=== PATIENT | female | born 1955 | race African-American/Black ===

== ENCOUNTER 2019-12-13 10:32 | Inpatient (IN) | payer MEDICARE, MEDICAID ==
[2019-12-13] MEDS ORDERED: Lorazepam 2 MG/ML VIAL ONE (10:37)
[2019-12-13 10:54] LABS: #Basophils 0.1 thou/uL (0.0-0.2); #Eosinphils 0.1 thou/uL (0.0-0.7); #Lymphocytes 2.6 thou/uL (1.20-3.40); #Monocytes 0.8 thou/uL (0.11-0.59); #Neutrophils 5.7 thou/uL (1.40-6.50); %Basophils 1.1 % (0.0-1.0); %Eosinophils 1.1 % (0.0-10.0); %Lymphocytes 28.5 % (21.0-51.0); %Monocytes 8.2 % (0.0-10.0); %Neutrophils 61.2 % (42.0-75.0); Hemoglobin 13.3 g/dL (12.0-16.0); Mean Corpuscular HGB CONC 32.1 g/dL (32.0-36.0); Mean Corpuscular Hemoglobin 27.1 pg (27.0-31.0); Mean Corpuscular Volume 84.6 fL (78.0-98.0); Mean Platelet Volume 9.3 fL (7.4-10.4); Platelet Count 312 thou/uL (130-400); RBC Distribution Width 13.4 % (11.5-14.5); White Blood Cell (WBC) Count 9.3 thou/uL (4.8-10.8)
[2019-12-13 10:57] LABS: INR-International Normal Ratio 0.9; PTT 29.8 sec (22.9-36.1); Prothrombin Time 12.6 sec (12.0-14.7)
--- NOTE | 2019-12-13 11:02 | CT ---
CT Head without IV contrast COMPARISON: None. HISTORY: Level 1 stroke. Difficulty speaking. Patient had seizure on table. TECHNIQUE: Axial CT imaging at 5 mm intervals from vertex through skull base without contrast FINDINGS: There is no evidence of an acute cortical infarction, hemorrhage, mass effect, or midline shift. Ther e is decreased attenuation seen in the periventricular white matter which is nonspecific but likely attributable to chronic small vessel ischemic changes. Low-density area is seen in the left external capsule which may also be attributable to chronic ischemic changes. A nonspecific tiny calcification is seen in the posterior aspect of the left temporal lobe. The ventricular system is no rmal in size, shape, and position for the degree of sulcal atrophy. Visualized paranasal sinuses are clear. Osseous structures appear intact. IMPRESSION: 1. No acute intracranial abnormality demonstrated. 2. Above findings discussed with Dr. Canales in the emergency department on 12/13/2019 at 1046 hours
[2019-12-13 11:18] LABS: ALT (SGPT) 15 U/L (8-55); AST (SGOT) 13 U/L (5-34); Albumin 4.1 g/dL (3.4-4.8); Alkaline Phosphatase 110 U/L (40-110); Anion Gap 16 mmol/L (10-20); BUN (Urea Nitrogen) 12 mg/dL (9.8-20.1); Bilirubin, Total 0.4 mg/dL (0.2-1.2); CK (CPK) 66 U/L (29-168); Calc. Creatinine Clearance 0 mL/min (70-130); Calcium 9.3 mg/dL (7.8-10.44); Carbon Dioxide 23 mmol/L (23-31); Chloride 104 mmol/L (98-107); Estimated GFR-MDRD 71; Glucose 143 mg/dL (80-115); Potassium 3.8 mmol/L (3.5-5.1); Protein, Total 7.1 g/dL (6.0-8.3); Sodium 139 mmol/L (136-145)
[2019-12-13 11:19] LABS: Acetaminophen Less than 6.0 mcg/mL (10.0-30.0); Alcohol Less than 10 mg/dL (Less than 10); Salicylate Less than 8.0 mg/dL (15.0-30.0)
[2019-12-13] MEDS ORDERED: Iopamidol-370 76% 500 ML 1 ML ONE (11:23)
--- NOTE | 2019-12-13 11:27 | CT ---
EXAM: CT angiogram head and neck with IV contrast and 3-D reconstructions PROVIDED CLINICAL HISTORY: Level 1 stroke. Patient is difficulty speaking and had a seizure on table. COMPARISON: 05/23/2017 FINDINGS: The aortic arch is patent with minimal vascular calcifications. There is a common origin of the brach iocephalic artery and left common carotid artery each of which is patent. Portion right subclavian artery is obscured due to dense contrast in adjacent veins, but the visualized bilateral subclavian a rteries are otherwise patent. Bilateral common carotid arteries are patent. Vascular calcifications and minimal atherosclerotic isabell que is seen at the distal right common carotid artery and to a lesser extent involving the distal left common carotid artery in the region of the carotid bulbs. There is mild narrowing of the distal right common carotid artery, but the degree of narrowing is less than 50%. Bilateral internal carotid arteries are patent. The proximal right vertebral artery is not well visualized due to artifact from adjacent dense contra st in venous structures. Remainder of the right vertebral artery is dominant and patent. The left vertebral artery is patent and terminates in PICA. The basilar artery and posterior cerebral arteries are patent. A type origin is seen involving the right posterior cerebral artery. Posterior communicating artery on the left is patent. The A1 segment right anterior cerebral artery is absent, and the A2 segments of each anterior cerebra l artery is supplied by the left A1 segment which is patent. The bilateral middle cerebral arteries are patent. No aneurysm is seen within the limitations of the technique of this exam. There has been no significant interval change when compared to the prior exam in 2017. There is mild volume loss seen dependently within the visualized upper lung zones. IMPRESSION: 1. Mild atherosclerotic plaque seen involving the distal common carotid arteries and carotid bulbs bi laterally greater on the right, but there is no significant stenosis present. 2. Patent bilateral vertebral arteries. Left vertebral artery terminates in PICA. 3. Patent bilateral internal carotid arteries. 4. No focal stenosis or branch occlusion is seen involving the [place] or vertebrobasilar sy stem. 5. Above findings discussed with Dr. Canales in the emergency department on 12/13/2019 at 1106 hours.
--- NOTE | 2019-12-13 11:37 | RAD ---
Exam: Chest one view HISTORY:Stroke alert Comparison: 08/29/2018 FINDINGS: Cardiac silhouette: Normal Aorta: Unremarkable Pulmonary vessels: Normal Costophrenic angles: Clear LUNGS: No masses or consolidation. Pneumothorax: None Osseous abnormalities: None IMPRESSION: No acute cardiopulmonary process.
[2019-12-13] MEDS ORDERED: Aspirin 300 MG Suppository ONE (12:18)
[2019-12-13] MEDS ORDERED: Sodium Chloride 0.9% 1,000 ML IV SCH (12:20)
[2019-12-13] MEDS ORDERED: Dextrose 50% Abboject 50 ML SYRINGE SLOW IVP PRN (14:21)
[2019-12-13] MEDS ORDERED: Bisacodyl 5 MG TAB PO PRN (14:21)
[2019-12-13] MEDS ORDERED: Morphine 2 MG/ML SYRINGE SLOW IVP PRN (14:21)
[2019-12-13] MEDS ORDERED: Acetaminophen 650 MG Suppository PR PRN (14:21)
[2019-12-13] MEDS ORDERED: Ondansetron PF 4 MG/2 ML Vial IVP PRN (14:21)
[2019-12-13] MEDS ORDERED: Dextrose 5% in Water 1,000 ML IV PRN (14:21)
[2019-12-13 14:26] VITALS: BMI 30.2
[2019-12-13 14:54] LABS: Troponin I 0.017 ng/mL (< 0.028)
--- NOTE | 2019-12-13 16:05 | HP ---
CHIEF COMPLAINT: Difficulty speaking. HISTORY OF PRESENT ILLNESS: Ms. Jung is a pleasant 64-year-old lady who was seen at [facility] on December 13, 2019. She was hospitalized at this facility in December 2018 for seizure. The patient is able to provide history by writing on paper. Collateral history was obtained from review of medical record as well as discussion with emergency room physician. The patient was reportedly shopping when she has become less responsive. She was having difficulty articulating. She also became unsteady and had to be helped to the ground. In the emergency room, she was found to be aphasic. She was offered tPA, but refused tPA. She denies any nausea or vomiting. She reports headache, global, 6/10 at its worst, no known aggravating or relieving factors. She also endorses occasional chest tightness over the last 2 days. She denies any cough, fevers, or chills. She denies any abdominal pain. REVIEW OF SYSTEMS: All systems were reviewed and found to be negative except for the pertinent positives mentioned above. PAST MEDICAL HISTORY: CVA in 2013 without residual deficit, TIA in 2011, seizures, hypertension, dyslipidemia, diabetes mellitus type 2, chronic low back pain, anxiety, and depression. PAST SURGICAL HISTORY: Hysterectomy and cholecystectomy. FAMILY HISTORY: Negative for heart disease. SOCIAL HISTORY: The patient denies tobacco use, alcohol use, or recreational drug use. ALLERGIES: NO KNOWN DRUG ALLERGIES. CURRENT MEDICATIONS: 1. Aspirin 81 mg daily. 2. Keppra 750 mg 2 times a day. 3. Lisinopril/hydrochlorothiazide 20/25 mg daily. 4. Tramadol 50 mg 3 times a day. PHYSICAL EXAMINATION: GENERAL: On examination, Ms. Jung is awake and alert, not in acute distress. VITAL SIGNS: Blood pressure is 109/69, pulse 84, respiratory rate 20, and oxygen saturation 98% on room air. She is afebrile. She is obese with a BMI of 30.2. EYES: No scleral icterus. No conjunctival pallor. ENT: Moist mucosal membranes. No oropharyngeal erythema or exudates. NECK: Supple, nontender, trachea is midline. RESPIRATORY: Accessory muscles of breathing are not active. Chest wall movements are symmetric bilaterally. Lungs are clear to auscultation without wheezes, rhonchi, or crepitations. CARDIOVASCULAR: S1 and S2 are heard, regular. Peripheral pulses palpable. ABDOMEN: Soft, nontender, bowel sounds are heard. NEUROLOGIC: The patient is aphasic. Cranial nerves 2 through 12 are intact. Power is 4/5 in the right upper extremity, 5/5 in the other 3 extremities. Deep tendon reflexes 2+, plantars downgoing bilaterally. SKIN: No rashes or subcutaneous nodules. MUSCULOSKELETAL: Power in the 4 extremities as described above. LYMPHATIC: No cervical lymphadenopathy. PSYCHIATRIC: Normal mood, normal affect, the patient is oriented to person, place, and time. LABORATORY DATA: Ms. Jung's labs and investigations were reviewed. I reviewed her electrocardiogram, which shows normal sinus rhythm, no ST changes to suggest an acute coronary syndrome. I also reviewed her chest x-ray, which does not show any pulmonary infiltrates. Noncontrast CT scan of the brain did not show any acute intracranial abnormality. CT scan of [place] and neck with contrast showed mild atherosclerotic plaque involving the distal common carotid arteries and carotid bulbs bilaterally, greater on the right, but no significant stenosis. There was no focal stenosis or branch occlusion involving the [place] or vertebrobasilar system. She has an unremarkable CBC, INR 0.9, unremarkable comprehensive metabolic profile, normal prolactin of 14.39, normal lipase, normal troponin I x2, and normal lactic acid. Plasma alcohol level, salicylate level, and acetaminophen level are all normal. ASSESSMENT AND PLAN: Ms. Jung is a pleasant 64-year-old lady who was seen at [facility] on December 13, 2019. Her problem list includes: 1. Ischemic cerebrovascular accident: Ms. Jung appears to be presenting with acute ischemic cerebrovascular accident. She will be admitted to the hospital for further management. I will consult Neurology. I will hold her aspirin and start her on Aggrenox and await Neurology Service's recommendations. I will also start her on statin. I will also check 2D echocardiogram and MRI of the brain. 2. Seizure disorder: I will continue Keppra. 3. Diabetes mellitus type 2: Start Accu-Cheks and insulin sliding scale. 4. Chronic back pain: Continue tramadol. 5. Anxiety and depression: It appears that the patient was using fluoxetine in 2016. We will resume the medication once it is clarified. Many thanks for allowing me to participate in your patient's care. Please feel free to contact me with any questions or concerns. LEVEL OF RISK: High. LEVEL OF COMPLEXITY: High. Job ID: [id number]
[2019-12-13] MEDS: traMADol HCl 50 MG TAB PO SCH ×2 (16:14→21:03)
[2019-12-13] MEDS: Sodium Chloride 0.9% 1,000 ML IV SCH (16:14)
[2019-12-13] MEDS: HumaLOG 300 UNITS/3 ML VIAL SC PRN (17:19)
[2019-12-13 17:55] LABS: Bacteria/HPF None Seen HPF (None Seen); Bilirubin Negative (Negative); Blood, Urine Negative (Negative); Clarity Clear (Clear); Glucose, Urine (Dipstick) Normal (Negative); Leukocyte Negative Leu/uL (Negative); Nitrite Negative (Negative); Protein, Urine (Dipstick) Negative (Neg-Trace); RBC/HPF 0-3 HPF (0-3); Urobilinogen Normal mg/dL (Less than 2); WBC/HPF 0-3 HPF (0-3)
[2019-12-13 18:00] LABS: Urine Culture Reflex No No
[2019-12-13 18:24] LABS: Troponin I 0.011 ng/mL (< 0.028)
[2019-12-13] MEDS: Atorvastatin Calcium 40 MG TAB PO SCH (21:02)
[2019-12-13] MEDS: Aggrenox 200-25mg CAP PO SCH (21:02)
[2019-12-13] MEDS: levETIRAcetam 500 MG TAB PO SCH (21:03)
[2019-12-14 05:04] LABS: #Basophils 0.1 thou/uL (0.0-0.2); #Eosinphils 0.1 thou/uL (0.0-0.7); #Lymphocytes 2.4 thou/uL (1.20-3.40); #Monocytes 0.8 thou/uL (0.11-0.59); #Neutrophils 5.5 thou/uL (1.40-6.50); %Basophils 1.1 % (0.0-1.0); %Eosinophils 1.4 % (0.0-10.0); %Lymphocytes 26.6 % (21.0-51.0); %Monocytes 8.5 % (0.0-10.0); %Neutrophils 62.5 % (42.0-75.0); Hemoglobin 11.5 g/dL (12.0-16.0); Mean Corpuscular HGB CONC 31.3 g/dL (32.0-36.0); Mean Corpuscular Hemoglobin 26.7 pg (27.0-31.0); Mean Corpuscular Volume 85.2 fL (78.0-98.0); Mean Platelet Volume 9.3 fL (7.4-10.4); Platelet Count 288 thou/uL (130-400); RBC Distribution Width 13.3 % (11.5-14.5); Red Blood Cell (RBC) Count 4.32 mill/uL (4.20-5.40); White Blood Cell (WBC) Count 8.8 thou/uL (4.8-10.8)
[2019-12-14 05:30] LABS: Anion Gap 10 mmol/L (10-20); BUN (Urea Nitrogen) 11 mg/dL (9.8-20.1); Calc. Creatinine Clearance 113 mL/min (70-130); Calcium 8.3 mg/dL (7.8-10.44); Carbon Dioxide 25 mmol/L (23-31); Cardiac Risk 3.8 (Less than 4.5); Chloride 108 mmol/L (98-107); Cholesterol 111 mg/dl (< 200 Desired); Estimated GFR-MDRD Greater than 90; Glucose 126 mg/dL (80-115); HDL Cholesterol 29 mg/dL (>60 Neg Risk); LDL Cholesterol, Calculated 67 mg/dL; Potassium 3.9 mmol/L (3.5-5.1); Sodium 139 mmol/L (136-145); Triglycerides 74 mg/dL (Less than 150)
[2019-12-14] MEDS: Acetaminophen 325 MG TAB PO PRN ×2 (06:01→10:31)
[2019-12-14] MEDS: Sodium Chloride 0.9% 1,000 ML IV SCH ×2 (08:40→23:26)
[2019-12-14] MEDS: levETIRAcetam 500 MG TAB PO SCH ×2 (08:43→20:37)
[2019-12-14] MEDS: traMADol HCl 50 MG TAB PO SCH ×3 (08:45→20:37)
[2019-12-14] MEDS: Aggrenox 200-25mg CAP PO SCH ×2 (08:46→20:37)
[2019-12-14] MEDS: Enoxaparin Sodium 40 MG/0.4 ML SYRINGE SC SCH (08:48)
[2019-12-14] MEDS ORDERED: Aspirin 325 mg Enteric Coated Tablet PO SCH (09:00)
[2019-12-14] MEDS: Lisinopril/Hydrochlorothiazide 20/25 mg Tablet PO SCH (09:47)
[2019-12-14] MEDS ORDERED: Nitroglycerin 0.4 MG TAB (25 Tab Bottle) SL PRN (12:03)
--- NOTE | 2019-12-14 12:36 | CON ---
NEUROLOGY CONSULTATION DATE OF CONSULTATION: 12/14/2019 REASON FOR CONSULTATION: Expressive aphasia. HISTORY OF PRESENT ILLNESS: Ms. Jung is a pleasant 64-year-old female who presented to the [facility] yesterday with difficulty talking. According to the patient, she was shopping when she became less responsive and has difficulty getting words out and also became unsteady. She was brought to the emergency room where she was found to be aphasic with right hemiparesis. She was offered tPA, but refused because of risk of bleeding. Her symptoms resolved at this time. The patient denies nausea, vomiting, focal weakness, focal paresthesias, vertigo, loss of vision, chest pain, abdominal pain, or any viral illness associated with this episode. . Right now, she does complain of headache, which is 7/10, and she continues to be aphasic and had mild right hemiparesis. CT scan of the brain was reviewed, which did not reveal any acute intracranial pathology. REVIEW OF SYSTEMS: All systems were reviewed and were negative except the pertinent positives mentioned in the HPI. PAST MEDICAL HISTORY: CVA in 2014, history of seizures, TIA in 2011, hypertension, dyslipidemia, diabetes mellitus type 2, chronic low back pain, depression, and anxiety. PAST SURGICAL HISTORY: Hysterectomy and cholecystectomy. FAMILY HISTORY: Negative for coronary artery disease or stroke. SOCIAL HISTORY: She denies smoking, alcohol, or illegal drug use. ALLERGIES: NO KNOWN DRUG ALLERGIES. MEDICATIONS: 1. Aspirin 81 mg daily. 2. Keppra 750 mg twice daily. 3. Lisinopril-hydrochlorothiazide 20-25 mg daily. 4. Tramadol 50 mg three times daily. PHYSICAL EXAMINATION: VITAL SIGNS: Blood pressure 110/80, pulse 80, and respiratory rate 18. CVS: Regular rate and rhythm. CHEST: Clear. ABDOMEN: Soft. NECK: No carotid bruit. NEUROLOGIC: Mental status, the patient is aphasic. She does follow commands and is able to write her name and place. Cranial nerves; pupils equal and reactive to light. Face symmetric. Tongue midline. Moves neck in both directions. Hearing seems to be intact. Motor, muscle tone and bulk are normal. Strength; 4+/5 in the right upper and lower extremities, 5/5 in the left upper and lower extremities. Deep tendon reflexes symmetric bilaterally. Toes are downgoing bilaterally. Cerebellar, finger-nose testing intact. Sensory intact. Gait not tested because of the patient's safety reasons. The patient communicates by writing. DATA: Reviewed. I reviewed the head CT which was negative for acute intracranial pathology and also reviewed the CT angiogram of the [place] and neck, which showed mild atherosclerotic plaque, but no hemodynamically significant stenosis. Labs were essentially unremarkable. ASSESSMENT AND PLAN: Ms. Jung is a 64-year-old who presented to the [facility] on December 13, 2019 with expressive aphasia, most likely stroke involving the left middle cerebral artery territory. Continue Aggrenox for secondary stroke prevention. Continue statin for secondary stroke prevention. MRI of the brain to rule out acute intracranial pathology. 2D echo to rule out cardioembolic source telemetry. Neuro checks every 4 hours. Continue home medications. Observe fall and seizure precautions. EEG to rule out underlying seizure activity. PT/OT/Speech. Further recommendations will depend on the results of the testing. We will continue to follow. Thank you for the consult. Job ID: [id number] MTDD
[2019-12-14] MEDS: Lorazepam 0.5 MG TAB PO PRN (13:02)
[2019-12-14 13:46] LABS: Troponin I 0.014 ng/mL (< 0.028)
--- NOTE | 2019-12-14 14:27 | EKG ---
Test Reason : Blood Pressure : / mmHG Vent. Rate : 090 BPM Atrial Rate : 090 BPM P-R Int : 126 ms QRS Dur : 080 ms QT Int : 382 ms P-R-T Axes : 050 057 029 degrees QTc Int : 467 ms Normal sinus rhythm Normal ECG Confirmed by LIAM TOLLIVER ([id number]), electronic news gathering editor NISH CASAS ([id number]) on 12/14/2019 2:27:42 PM Referred By: Confirmed By:LIAM Garcia
--- NOTE | 2019-12-14 14:30 | MRI ---
MRI brain noncontrast HISTORY: CVA. Right-sided weakness COMPARISON: 12/23/2018. FINDINGS: There is no evidence of acute intracranial hemorrhage or infarct. Mild chronic ischemic sma ll vessel disease throughout the periventricular white matter of each cerebral hemisphere similar in appearance to the previous exam. There is no mass effect or shift of midline structures. Prominence of the pituitary gland unchanged f rom previous exams. Visualized paranasal sinuses remain well aerated. IMPRESSION: Chronic-type findings are stable. No acute intracranial abnormalities are demonstrated.
--- NOTE | 2019-12-14 14:40 | EEG ---
Referring Physician: Sarah ATKINSON EEG # [id number] TEST TYPE: EXTENDED CONTINUOUS VIDEO EEG REPORT: This EEG was performed using 24 channel [employer] video digital EEG machine with 24 disc electrodes. This was an extended 2 hour 11 minutes of inpatient video EEG recording. Digital analysis of the EEG was done for spike and seizure detection which revealed no abnormalities. BACKGROUND: The posterior background rhythm is 9-10 hertz. The background rhythm attenuates with eye opening and enhances with eye closure. HYPERVENTILATION: Not performed. PHOTIC STIMULATION: Bioccipital symmetric driving response is observed. SLEEP: Drowsiness is observed. EEG DIAGNOSIS: THIS IS A NORMAL AWAKE AND DROWSY EEG. NO ICTAL OR INTERICTAL EPILEPTIFORM ABNORMALITIES SEEN DURING THE RECORDING. Vice Admiral: MONSTER Advertising Production Manager: [email or web address]
--- NOTE | 2019-12-14 15:07 | PDOC.HOSPP ---
- Subjective Encounter Date: 12/14/19 Encounter Time: 08:00 Subjective: Pt seen for followup re: CVA. Still has aphasia. - Objective Vital Signs & Weight: Vital Signs (12 hours) Temp Pulse Resp BP BP Pulse Ox 12/14/19 11:53 97.5 F L 90 18 118/76 97 12/14/19 11:33 97.8 F 97 17 119/72 97 12/14/19 09:47 109/68 12/14/19 07:44 97.8 F 94 16 109/68 98 12/14/19 03:32 97.9 F 94 18 109/70 98 Weight Weight 192 lb 9.6 oz I&O: 12/13/19 12/14/19 12/15/19 06:59 06:59 06:59 Intake Total 880 Balance 880 Result Diagrams: 12/14/19 04:46 12/14/19 04:46 Additional Labs: Accuchecks 12/14/19 12/14/19 12/13/19 10:39 05:38 20:22 POC Glucose 121 H 143 H 188 H 12/13/19 16:46 POC Glucose 187 H Labs and MARs reviewed by me EKG Reviewed by me: Yes (Tele; NSR) Hospitalist ROS - Review of Systems Constitutional: denies: fever, chills, sweats, weakness, malaise Gastrointestinal: denies: nausea, vomiting, abdominal pain, diarrhea, constipation, melena, hematochezia Genitourinary: denies: dysuria, frequency, incontinence, hematuria, retention Musculoskeletal: denies: neck pain, shoulder pain, arm pain, back pain, hand pain, leg pain, foot pain Skin: denies: rash, lesions, nayeli, bruising Neurological: reports: change in speech. denies: weakness, numbness, incoordination, confusion, seizures - Medication Medications: Active Medications Generic Name Dose Route Start Last Admin Trade Name Freq PRN Reason Stop Dose Admin Acetaminophen 650 mg 12/13/19 14:21 12/14/19 10:31 Tylenol PO 650 mg Q4H PRN Administration Headache/Fever/Mild Pain (1-3) Atorvastatin Calcium 40 mg 12/13/19 21:00 12/13/19 21:02 Lipitor PO 40 mg HS MARIE Administration Dipyridamole/Aspirin 1 cap 12/13/19 21:00 12/14/19 08:46 Aggrenox PO 1 cap BID MARIE Administration Enoxaparin Sodium 40 mg 12/14/19 09:00 12/14/19 08:48 Lovenox SC 40 mg 0900 MARIE Administration Lisinopril/HCTZ 1 tab 12/14/19 09:00 12/14/19 09:47 Prinizide 20-25 PO Not Given DAILY MARIE Sodium Chloride 1,000 mls @ 70 mls/hr 12/13/19 14:30 12/14/19 08:40 Normal Saline 0.9% IV 1,000 mls .[id number] MARIE Administration Insulin Human Lispro 0 units 12/13/19 14:21 12/13/19 17:19 Humalog SC 2 units .MILD SLIDING SCALE PRN Administration Mild Correctional Scale Levetiracetam 750 mg 12/13/19 21:00 12/14/19 08:43 Keppra PO 750 mg BID MARIE Administration Lorazepam 0.5 mg 12/13/19 18:04 12/14/19 13:02 Ativan PO 0.5 mg Q12H PRN Administration Anxiety Nitroglycerin 0.4 mg 12/14/19 12:03 12/14/19 12:08 Nitrostat SL 0.4 mg Q5MIN PRN Administration Chest Pain Tramadol HCl 50 mg 12/13/19 15:00 12/14/19 14:49 Ultram PO 50 mg TID MARIE Administration - Exam General - other findings: Obese Eye: anicteric sclera ENT: moist mucosa Neck: supple, symmetric, no thyromegaly, no lymphadenopathy Heart: RRR, no gallops, no rubs, normal peripheral pulses Respiratory: CTAB, no wheezes, no rales, no ronchi Gastrointestinal: soft, non-tender, non-distended, normal bowel sounds Extremities: no cyanosis Psychiatric: normal affect, normal behavior, oriented to person, oriented to place Hosp A/P (1) Acute CVA (cerebrovascular accident) Code(s): I63.9 - CEREBRAL INFARCTION, UNSPECIFIED Status: Acute (2) Dyslipidemia Code(s): E78.5 - HYPERLIPIDEMIA, UNSPECIFIED Status: Chronic (3) DM2 (diabetes mellitus, type 2) Status: Chronic (4) GERD (gastroesophageal reflux disease) Code(s): K21.9 - GASTRO-ESOPHAGEAL REFLUX DISEASE WITHOUT ESOPHAGITIS Status: Chronic (5) Hypertension Code(s): I10 - ESSENTIAL (PRIMARY) HYPERTENSION Status: Chronic - Plan PT/OT, out of bed/ambulate, DVT proph w/lovenox continue Aggrenox continue Atorvastatin Pt had episode of chest tightness, may need cardiac workup HTN controlled Reasonable control of blood sugars. Continue IV ceftriaxone, follow urine cultures
[2019-12-14] MEDS: HumaLOG 300 UNITS/3 ML VIAL SC PRN (17:37)
[2019-12-14 18:13] LABS: Troponin I 0.018 ng/mL (< 0.028)
[2019-12-14] MEDS: Atorvastatin Calcium 40 MG TAB PO SCH (20:37)
[2019-12-14 21:36] LABS: Troponin I 0.013 ng/mL (< 0.028)
[2019-12-15 05:57] LABS: #Basophils 0.1 thou/uL (0.0-0.2); #Eosinphils 0.1 thou/uL (0.0-0.7); #Lymphocytes 2.7 thou/uL (1.20-3.40); #Monocytes 0.8 thou/uL (0.11-0.59); #Neutrophils 6.8 thou/uL (1.40-6.50); %Basophils 0.6 % (0.0-1.0); %Eosinophils 1.3 % (0.0-10.0); %Lymphocytes 25.9 % (21.0-51.0); %Neutrophils 64.2 % (42.0-75.0); Mean Corpuscular HGB CONC 32.5 g/dL (32.0-36.0); Mean Corpuscular Hemoglobin 28.1 pg (27.0-31.0); Mean Corpuscular Volume 86.6 fL (78.0-98.0); Mean Platelet Volume 9.7 fL (7.4-10.4); Platelet Count 303 thou/uL (130-400); RBC Distribution Width 13.5 % (11.5-14.5); Red Blood Cell (RBC) Count 4.26 mill/uL (4.20-5.40); White Blood Cell (WBC) Count 10.5 thou/uL (4.8-10.8)
[2019-12-15 06:14] LABS: Anion Gap 11 mmol/L (10-20); BUN (Urea Nitrogen) 9 mg/dL (9.8-20.1); Calc. Creatinine Clearance 113 mL/min (70-130); Calcium 8.7 mg/dL (7.8-10.44); Carbon Dioxide 23 mmol/L (23-31); Chloride 108 mmol/L (98-107); Estimated GFR-MDRD Greater than 90; Glucose 117 mg/dL (80-115); Potassium 3.9 mmol/L (3.5-5.1); Sodium 138 mmol/L (136-145)
[2019-12-15] MEDS: Aggrenox 200-25mg CAP PO SCH (09:11)
[2019-12-15] MEDS: levETIRAcetam 500 MG TAB PO SCH ×2 (09:12→20:29)
[2019-12-15] MEDS: traMADol HCl 50 MG TAB PO SCH ×3 (09:12→20:29)
[2019-12-15] MEDS: Enoxaparin Sodium 40 MG/0.4 ML SYRINGE SC SCH (09:12)
[2019-12-15] MEDS: Lisinopril/Hydrochlorothiazide 20/25 mg Tablet PO SCH (09:13)
[2019-12-15] MEDS: Lorazepam 0.5 MG TAB PO PRN (12:36)
[2019-12-15] MEDS: Acetaminophen 325 MG TAB PO PRN (12:36)
[2019-12-15] MEDS: Sodium Chloride 0.9% 1,000 ML IV SCH (14:31)
[2019-12-15] MEDS ORDERED: traZODone HCl 150 MG TAB PO PRN (15:35)
[2019-12-15] MEDS: metFORMIN 500 MG TAB PO SCH (17:29)
--- NOTE | 2019-12-15 18:04 | PDOC.HOSPP ---
- Subjective Encounter Date: 12/15/19 Encounter Time: 08:20 Subjective: Pt seen for followup re: CVA. No chest pain today. - Objective Vital Signs & Weight: Vital Signs (12 hours) Temp Pulse Pulse Pulse Resp BP BP 12/15/19 15:15 97.9 F 91 18 12/15/19 11:26 97.8 F 99 16 12/15/19 10:12 103 H 138/84 12/15/19 09:13 101 H 139/72 12/15/19 08:33 101 H 101 H 139/72 12/15/19 08:18 12/15/19 07:48 97.5 F L 93 16 BP BP Pulse Ox 12/15/19 15:15 116/75 99 12/15/19 11:26 104/69 99 12/15/19 10:12 12/15/19 09:13 12/15/19 08:33 129/69 12/15/19 08:18 99 12/15/19 07:48 107/77 99 Weight Weight 192 lb 9.6 oz I&O: 12/14/19 12/15/19 12/16/19 06:59 06:59 06:59 Intake Total 880 2460 1784 Output Total 1850 1750 Balance 880 610 34 Result Diagrams: 12/15/19 05:42 12/15/19 05:42 Additional Labs: Accuchecks 12/15/19 12/15/19 12/14/19 10:35 05:19 20:50 POC Glucose 108 134 H 160 H Labs and MARs reviewed by me EKG Reviewed by me: Yes (Tele: NSR) Hospitalist ROS - Review of Systems Cardiovascular: denies: chest pain, palpitations, orthopnea, paroxysmal noc. dyspnea, edema, light headedness Gastrointestinal: denies: nausea, vomiting, abdominal pain, diarrhea, constipation, melena, hematochezia - Medication Medications: Active Medications Generic Name Dose Route Start Last Admin Trade Name Freq PRN Reason Stop Dose Admin Acetaminophen 650 mg 12/13/19 14:21 12/15/19 12:36 Tylenol PO 650 mg Q4H PRN Administration Headache/Fever/Mild Pain (1-3) Atorvastatin Calcium 40 mg 12/13/19 21:00 12/14/19 20:37 Lipitor PO 40 mg HS MARIE Administration Enoxaparin Sodium 40 mg 12/14/19 09:00 12/15/19 09:12 Lovenox SC 40 mg 0900 MARIE Administration Lisinopril/HCTZ 1 tab 12/14/19 09:00 12/15/19 09:13 Prinizide 20-25 PO 1 tab DAILY MARIE Administration Sodium Chloride 1,000 mls @ 70 mls/hr 12/13/19 14:30 12/15/19 14:31 Normal Saline 0.9% IV 1,000 mls .[id number] MARIE Administration Insulin Human Lispro 0 units 12/13/19 14:21 12/14/19 17:37 Humalog SC 2 units .MILD SLIDING SCALE PRN Administration Mild Correctional Scale Levetiracetam 750 mg 12/13/19 21:00 12/15/19 09:12 Keppra PO 750 mg BID MARIE Administration Lorazepam 0.5 mg 12/13/19 18:04 12/15/19 12:36 Ativan PO 0.5 mg Q12H PRN Administration Anxiety Metformin HCl 500 mg 12/15/19 17:00 12/15/19 17:29 Glucophage PO 500 mg BID-WM MARIE Administration Nitroglycerin 0.4 mg 12/14/19 12:03 12/14/19 12:08 Nitrostat SL 0.4 mg Q5MIN PRN Administration Chest Pain Tramadol HCl 50 mg 12/13/19 15:00 12/15/19 14:30 Ultram PO 50 mg TID MARIE Administration - Exam General Appearance: NAD Eye: PERRL Neck: supple Heart: RRR Respiratory: CTAB Gastrointestinal: soft Skin: normal turgor Musculoskeletal: no muscle wasting Psychiatric: normal affect, normal behavior Hosp A/P (1) Acute CVA (cerebrovascular accident) Code(s): I63.9 - CEREBRAL INFARCTION, UNSPECIFIED Status: Acute (2) Dyslipidemia Code(s): E78.5 - HYPERLIPIDEMIA, UNSPECIFIED Status: Chronic (3) DM2 (diabetes mellitus, type 2) Status: Chronic (4) GERD (gastroesophageal reflux disease) Code(s): K21.9 - GASTRO-ESOPHAGEAL REFLUX DISEASE WITHOUT ESOPHAGITIS Status: Chronic (5) Hypertension Code(s): I10 - ESSENTIAL (PRIMARY) HYPERTENSION Status: Chronic - Plan continue Aggrenox continue Atorvastatin Pt had episode of chest tightness, may need cardiac workup HTN controlled Reasonable control of blood sugars. Continue IV ceftriaxone, follow urine cultures
[2019-12-15] MEDS: Atorvastatin Calcium 40 MG TAB PO SCH (20:29)
[2019-12-15] MEDS: Lorazepam 0.5 MG TAB PO SCH (20:29)
[2019-12-16 04:40] LABS: #Basophils 0.1 thou/uL (0.0-0.2); #Eosinphils 0.2 thou/uL (0.0-0.7); #Lymphocytes 2.5 thou/uL (1.20-3.40); #Monocytes 0.8 thou/uL (0.11-0.59); %Basophils 0.8 % (0.0-1.0); %Eosinophils 1.9 % (0.0-10.0); %Lymphocytes 25.8 % (21.0-51.0); %Monocytes 8.3 % (0.0-10.0); %Neutrophils 63.2 % (42.0-75.0); Hemoglobin 12.5 g/dL (12.0-16.0); Mean Corpuscular HGB CONC 32.9 g/dL (32.0-36.0); Mean Corpuscular Hemoglobin 27.6 pg (27.0-31.0); Mean Platelet Volume 9.9 fL (7.4-10.4); Platelet Count 224 thou/uL (130-400); RBC Distribution Width 13.3 % (11.5-14.5); Red Blood Cell (RBC) Count 4.52 mill/uL (4.20-5.40); White Blood Cell (WBC) Count 9.5 thou/uL (4.8-10.8)
[2019-12-16] MEDS: Sodium Chloride 0.9% 1,000 ML IV SCH ×2 (04:44→18:12)
[2019-12-16 04:50] LABS: Anion Gap 12 mmol/L (10-20); Calc. Creatinine Clearance 103 mL/min (70-130); Carbon Dioxide 23 mmol/L (23-31); Chloride 108 mmol/L (98-107); Estimated GFR-MDRD Greater than 90; Potassium 4.2 mmol/L (3.5-5.1); Sodium 139 mmol/L (136-145)
[2019-12-16 05:00] LABS: BUN (Urea Nitrogen) 11 mg/dL (9.8-20.1); Glucose 113 mg/dL (80-115)
[2019-12-16] MEDS: Meloxicam 7.5 MG TAB PO SCH (09:16)
[2019-12-16] MEDS: traMADol HCl 50 MG TAB PO SCH ×3 (09:16→21:56)
[2019-12-16] MEDS: Aspirin 81 mg Enteric Coated Tablet PO SCH (09:16)
[2019-12-16] MEDS: Lorazepam 0.5 MG TAB PO SCH ×2 (09:16→21:55)
[2019-12-16] MEDS: metFORMIN 500 MG TAB PO SCH ×2 (09:16→16:35)
[2019-12-16] MEDS: FLUoxetine HCl 20 MG CAP PO SCH ×2 (09:16→21:57)
[2019-12-16] MEDS: Allopurinol 300 MG TAB PO SCH (09:16)
[2019-12-16] MEDS: levETIRAcetam 500 MG TAB PO SCH ×2 (09:16→21:53)
[2019-12-16] MEDS: Lisinopril/Hydrochlorothiazide 20/25 mg Tablet PO SCH (09:16)
[2019-12-16] MEDS: Clopidogrel Bisulfate 75 MG TAB PO SCH (09:16)
[2019-12-16] MEDS: Acetaminophen 325 MG TAB PO PRN (09:17)
[2019-12-16] MEDS: Enoxaparin Sodium 40 MG/0.4 ML SYRINGE SC SCH (09:17)
--- NOTE | 2019-12-16 14:07 | PDOC.HOSPP ---
- Subjective Encounter Date: 12/16/19 Encounter Time: 08:00 Subjective: Pt seen for followup re: CVA. Denies recurrence of chest pain. - Objective Vital Signs & Weight: Vital Signs (12 hours) Temp Pulse Resp BP Pulse Ox 12/16/19 11:57 97.7 F 96 16 128/74 97 12/16/19 09:16 95 12/16/19 08:00 99 12/16/19 07:54 98.4 F 95 16 122/69 99 12/16/19 04:00 97.6 F 91 16 106/63 100 Weight Weight 192 lb 9.6 oz I&O: 12/15/19 12/16/19 12/17/19 06:59 06:59 06:59 Intake Total 2460 2746 600 Output Total 1850 3450 Balance 610 -704 600 Result Diagrams: 12/16/19 04:25 12/16/19 04:25 Additional Labs: Accuchecks 12/16/19 12/16/19 12/15/19 10:47 05:28 20:10 POC Glucose 112 H 115 H 111 H 12/15/19 17:31 POC Glucose 129 H Labs and MARs reviewed by me EKG Reviewed by me: Yes (Tele; NSR) Hospitalist ROS - Review of Systems Cardiovascular: denies: chest pain, palpitations, orthopnea, paroxysmal noc. dyspnea, edema, light headedness Neurological: reports: weakness, change in speech. denies: numbness, incoordination, confusion, seizures - Medication Medications: Active Medications Generic Name Dose Route Start Last Admin Trade Name Freq PRN Reason Stop Dose Admin Acetaminophen 650 mg 12/13/19 14:21 12/16/19 09:17 Tylenol PO 650 mg Q4H PRN Administration Headache/Fever/Mild Pain (1-3) Allopurinol 300 mg 12/16/19 09:00 12/16/19 09:16 Zyloprim PO 300 mg DAILY MARIE Administration Aspirin 81 mg 12/16/19 09:00 12/16/19 09:16 Ecotrin PO 81 mg DAILY MARIE Administration Atorvastatin Calcium 40 mg 12/13/19 21:00 12/15/19 20:29 Lipitor PO 40 mg HS MARIE Administration Clopidogrel Bisulfate 75 mg 12/16/19 09:00 12/16/19 09:16 Plavix PO 75 mg DAILY MARIE Administration Enoxaparin Sodium 40 mg 12/14/19 09:00 12/16/19 09:17 Lovenox SC 40 mg 0900 MARIE Administration Fluoxetine HCl 20 mg 12/16/19 09:00 12/16/19 09:16 Prozac PO 20 mg BID MARIE Administration Lisinopril/HCTZ 1 tab 12/14/19 09:00 12/16/19 09:16 Prinizide 20-25 PO 1 tab DAILY MARIE Administration Sodium Chloride 1,000 mls @ 70 mls/hr 12/13/19 14:30 12/16/19 04:44 Normal Saline 0.9% IV 1,000 mls .[id number] MARIE Administration Insulin Human Lispro 0 units 12/13/19 14:21 12/14/19 17:37 Humalog SC 2 units .MILD SLIDING SCALE PRN Administration Mild Correctional Scale Levetiracetam 750 mg 12/15/19 21:00 12/16/19 09:16 Keppra PO 750 mg BID MARIE Administration Lorazepam 0.5 mg 12/13/19 18:04 12/15/19 12:36 Ativan PO 0.5 mg Q12H PRN Administration Anxiety Lorazepam 0.5 mg 12/15/19 21:00 12/16/19 09:16 Ativan PO 0.5 mg BID MARIE Administration Meloxicam 7.5 mg 12/16/19 09:00 12/16/19 09:16 Mobic PO 7.5 mg DAILY MARIE Administration Metformin HCl 500 mg 12/15/19 17:00 12/16/19 09:16 Glucophage PO 500 mg BID-WM MARIE Administration Nitroglycerin 0.4 mg 12/14/19 12:03 12/14/19 12:08 Nitrostat SL 0.4 mg Q5MIN PRN Administration Chest Pain Pantoprazole Sodium 40 mg 12/16/19 09:00 12/16/19 09:16 Protonix PO 40 mg DAILY MARIE Administration Tramadol HCl 50 mg 12/13/19 15:00 12/16/19 09:16 Ultram PO 50 mg TID MARIE Administration - Exam General Appearance: awake alert ENT: no oropharyngeal lesions, moist mucosa Neck: no thyromegaly, no lymphadenopathy Heart: RRR Respiratory: CTAB Gastrointestinal: soft, non-tender Neurological: speech deficit Psychiatric: normal affect, normal behavior Hosp A/P (1) Acute CVA (cerebrovascular accident) Code(s): I63.9 - CEREBRAL INFARCTION, UNSPECIFIED Status: Acute (2) Dyslipidemia Code(s): E78.5 - HYPERLIPIDEMIA, UNSPECIFIED Status: Chronic (3) DM2 (diabetes mellitus, type 2) Status: Chronic (4) GERD (gastroesophageal reflux disease) Code(s): K21.9 - GASTRO-ESOPHAGEAL REFLUX DISEASE WITHOUT ESOPHAGITIS Status: Chronic (5) Hypertension Code(s): I10 - ESSENTIAL (PRIMARY) HYPERTENSION Status: Chronic - Plan continue Plavix continue Atorvastatin Stress test tomorrow HTN controlled Reasonable control of blood sugars.
[2019-12-16] MEDS: Atorvastatin Calcium 40 MG TAB PO SCH (21:57)
[2019-12-17 08:30] VITALS: BP 121/72; TEMP 97.6
[2019-12-17] MEDS ORDERED: ADENOSINE 60 MG/20 ML VIAL ONE (09:31)
[2019-12-17] MEDS: Enoxaparin Sodium 40 MG/0.4 ML SYRINGE SC SCH (09:54)
[2019-12-17] MEDS: Meloxicam 7.5 MG TAB PO SCH (09:55)
[2019-12-17] MEDS: FLUoxetine HCl 20 MG CAP PO SCH (09:55)
[2019-12-17] MEDS: levETIRAcetam 500 MG TAB PO SCH (09:55)
[2019-12-17] MEDS: Lorazepam 0.5 MG TAB PO SCH (09:55)
[2019-12-17] MEDS: traMADol HCl 50 MG TAB PO SCH ×2 (09:55→15:55)
[2019-12-17] MEDS: Clopidogrel Bisulfate 75 MG TAB PO SCH (09:55)
[2019-12-17] MEDS: metFORMIN 500 MG TAB PO SCH ×2 (09:55→15:56)
[2019-12-17] MEDS: Allopurinol 300 MG TAB PO SCH (09:56)
[2019-12-17] MEDS: Sodium Chloride 0.9% 1,000 ML IV SCH (09:56)
[2019-12-17] MEDS: Aspirin 81 mg Enteric Coated Tablet PO SCH (09:56)
[2019-12-17] MEDS: Lisinopril/Hydrochlorothiazide 20/25 mg Tablet PO SCH (10:31)
--- NOTE | 2019-12-17 11:58 | PDOC.HOSPP ---
- Subjective Encounter Date: 12/17/19 Subjective: NEUROLOGY PROGRESS NOTE No acute events overnight. Clinically improved. - Objective Vital Signs & Weight: Vital Signs (12 hours) Temp Pulse Resp BP Pulse Ox 12/17/19 10:31 93 12/17/19 08:00 97.6 F 93 19 121/72 100 12/17/19 03:22 98.2 F 94 16 150/90 H 98 12/17/19 00:00 97.8 F 91 18 119/55 L 100 Weight Weight 192 lb 9.6 oz I&O: 12/16/19 12/17/19 12/18/19 06:59 06:59 06:59 Intake Total 2746 960 160 Output Total 3450 1000 Balance -704 -40 160 Result Diagrams: 12/16/19 04:25 12/16/19 04:25 Additional Labs: Accuchecks 12/17/19 12/16/19 12/16/19 06:17 20:29 16:54 POC Glucose 109 99 99 Radiology Reviewed by me: Yes EKG Reviewed by me: Yes Hospitalist ROS - Review of Systems Constitutional: denies: fever, chills, sweats, weakness, malaise, other Eyes: denies: pain, vision change, conjunctivae inflammation, eyelid inflammation, redness, other ENT: denies: ear pain, ear discharge, nose pain, nose discharge, nose congestion , mouth pain, mouth swelling, throat pain, throat swelling, other Respiratory: denies: cough, dry, shortness of breath, hemoptysis, SOB with excertion, pleuritic pain, sputum, wheezing, other Cardiovascular: reports: palpitations. denies: chest pain, orthopnea, paroxysmal noc. dyspnea, edema, light headedness, other Gastrointestinal: denies: nausea, vomiting, abdominal pain, diarrhea, constipation, melena, hematochezia, other Genitourinary: denies: dysuria, frequency, incontinence, hematuria, retention, other Musculoskeletal: denies: neck pain, shoulder pain, arm pain, back pain, hand pain, leg pain, foot pain, other Skin: denies: rash, lesions, nayeli, bruising, other Neurological: reports: weakness, change in speech - Medication Medications: Active Medications Generic Name Dose Route Start Last Admin Trade Name Freq PRN Reason Stop Dose Admin Acetaminophen 650 mg 12/13/19 14:21 12/16/19 09:17 Tylenol PO 650 mg Q4H PRN Administration Headache/Fever/Mild Pain (1-3) Acetaminophen 650 mg 12/13/19 14:21 12/17/19 06:[address] 650 mg Q4H PRN Administration Headache/Fever/Mild Pain (1-3) Allopurinol 300 mg 12/16/19 09:00 12/17/19 09:56 Zyloprim PO 300 mg DAILY MARIE Administration Aspirin 81 mg 12/16/19 09:00 12/17/19 09:56 Ecotrin PO 81 mg DAILY MARIE Administration Atorvastatin Calcium 40 mg 12/13/19 21:00 12/16/19 21:57 Lipitor PO 40 mg HS [facility] Administration Clopidogrel Bisulfate 75 mg 12/16/19 09:00 12/17/19 09:55 Plavix PO 75 mg DAILY [facility] Administration Enoxaparin Sodium 40 mg 12/14/19 09:00 12/17/19 09:54 Lovenox SC 40 mg 0900 MARIE Administration Fluoxetine HCl 20 mg 12/16/19 09:00 12/17/19 09:55 Prozac PO 20 mg BID [facility] Administration Lisinopril/HCTZ 1 tab 12/14/19 09:00 12/17/19 10:31 Prinizide 20-25 PO Not Given DAILY [facility] Sodium Chloride 1,000 mls @ 70 mls/hr 12/13/19 14:30 12/17/19 09:56 Normal Saline 0.9% IV 1,000 mls .[id number] MARIE Administration Insulin Human Lispro 0 units 12/13/19 14:21 12/14/19 17:37 Humalog SC 2 units .MILD SLIDING SCALE PRN Administration Mild Correctional Scale Levetiracetam 750 mg 12/15/19 21:00 12/17/19 09:55 Keppra PO 750 mg BID MARIE Administration Lorazepam 0.5 mg 12/13/19 18:04 12/15/19 12:36 Ativan PO 0.5 mg Q12H PRN Administration Anxiety Lorazepam 0.5 mg 12/15/19 21:00 12/17/19 09:55 Ativan PO 0.5 mg BID MARIE Administration Meloxicam 7.5 mg 12/16/19 09:00 12/17/19 09:55 Mobic PO 7.5 mg DAILY MARIE Administration Metformin HCl 500 mg 12/15/19 17:00 12/17/19 09:55 Glucophage PO 500 mg BID-WM MARIE Administration Nitroglycerin 0.4 mg 12/14/19 12:03 12/14/19 12:08 Nitrostat SL 0.4 mg Q5MIN PRN Administration Chest Pain Pantoprazole Sodium 40 mg 12/16/19 09:00 12/17/19 09:55 Protonix PO 40 mg DAILY MARIE Administration Tramadol HCl 50 mg 12/13/19 15:00 12/17/19 09:55 Ultram PO 50 mg TID MARIE Administration - Exam Eye: PERRL ENT: normocephalic atraumatic Neck: supple Heart: RRR Respiratory: CTAB Gastrointestinal: soft Extremities: no cyanosis Skin: normal turgor Neurological: no new deficit, speech deficit Psychiatric: normal affect, normal behavior, A&O x 3 Hosp A/P (1) Receptive aphasia Code(s): R47.01 - APHASIA Status: Acute (2) Encephalopathy Code(s): G93.40 - ENCEPHALOPATHY, UNSPECIFIED Status: Acute (3) Otitis media Code(s): H66.90 - OTITIS MEDIA, UNSPECIFIED, UNSPECIFIED EAR Status: Acute (4) Anxiety and depression Code(s): F41.9 - ANXIETY DISORDER, UNSPECIFIED; F32.9 - MAJOR DEPRESSIVE DISORDER, SINGLE EPISODE, UNSPECIFIED Status: Chronic (5) Chronic low back pain Code(s): M54.5 - LOW BACK PAIN; G89.29 - OTHER CHRONIC PAIN Status: Chronic (6) DM2 (diabetes mellitus, type 2) Status: Chronic - Plan PT/OT, speech therapy 64 year old with diabetes and anxiety presented with episode of receptive aphasia/ right hemiparesis . MRI brain reviewed which was negative for acute intracranial pathology Neurochecks every 4 hours. EEG reviewed which was negative for seizure activity High-dose aspirin and atorvastatin for secondary stroke prevention. Strict control of BP and BG. PT/OT/Speech Telemetry and continue cardiology work up. Continue home medications Continue medical management per primary team. No further recommendations from neurology perspective.
--- NOTE | 2019-12-17 13:35 | NM ---
CARDIAC SPECT: CLINICAL HISTORY: 64-year-old female with chest pain, CVA, TIA, hypertension, diabetes, and dyslipidemia. TECHNIQUE: A myocardial perfusion scan was performed using the single isotope two day protocol with 33 mCi techn etium-99m sestamibi injected intravenously for both stress and rest images. Pharmacologic stress with Adenosine was monitored and interpreted by Rut Slaughter. FINDINGS: There is a fixed defect in the distal anteroseptal wall. The left ventricular cavity appears larger o n stress compared to rest with a TID ratio of 1.48. GATED SPECT LVEF: 67%. WALL MOTION EXAM: Normal. IMPRESSION: TID ratio is 1.48. Clinical correlation is recommended. POS: [facility]
--- NOTE | 2019-12-17 14:25 | PQF ---
KATE VASQUEZ DIVEK MD [id number] [facility] [place] [place] [id number] CLINICAL DOCUMENTATION IMPROVEMENT CLARIFICATION FORM: ICD-10 Updated PLEASE DO AN ADDENDUM TO THE PROGRESS NOTE WITH ANY DOCUMENTATION UPDATES OR ADDITIONS AND CARRY THROUGH TO DC SUMMARY. THANK YOU. DATE: 12/17/2019 ATTN:DR. Deann JESSICA Please exercise your independent, professional judgment in responding to the clarification form. Clinical indicators are provided on the bottom of this form for your review. Please check appropriate box(s): Acute Encephalopathy: Etiology : [ ] Hypertensive [ ] Metabolic [ ] Toxic [ ] Unspecified [ ] in the setting of underlying dementia [ ] Other (please specify) [ ] Transient Alteration of Awareness [ ] Other diagnosis [ ] Unable to determine In addition, please specify: Present on Admission (POA): [ ] Yes [ ] No [ ] Unable to determine For continuity of documentation, please document condition throughout progress notes and discharge summary. Thank You. CLINICAL INDICATORS - SIGNS / SYMPTOMS / LABS / RESULTS AND LOCATION IN EMR 12/12 ED REPORT: PATIENT BROUGHT FOR EVALUATION OF STROKELIKE SYMPTOMS, SHE WAS REPORTEDLY SHOPPING WHEN SHE BECAME UNSTEADY AND HAD TO BE HELPED TO THE GROUND. THERE IS A REPORT OF SOME CHANGES OF CONSCIOUSNESS, BUT PATIENT IS AWAKE UPON ARRIVAL TO THE EMERGENCY ROOM. 12/16 PN ( [place]) A/P : 2). ENCEPHALOPATHY RISK: CVA, HX HTN ( H&P/JASKARAN) 12/12) TREATMENTS: NEUROLOGY CONSULT ( 12/13) NEURO CHECKS Q 4 HOURS ( PN / 12/16) NS IV FLUIDS ( 12/12 - PRESENT) THANK YOU! SONU (This form is maintained as a part of the permanent medical record) 2014 [employer] All Rights Reserved [email or web address] [email or web address]
--- NOTE | 2019-12-17 15:40 | CON ---
DATE OF CONSULTATION: REASON FOR CONSULTATION: Abnormal stress study. HISTORY OF PRESENT ILLNESS: Ms. Jung is a 64-year-old woman with past history of diabetes and hypertension, who recently presented with stroke-like symptoms. MRI was negative. She continues to have difficulty with speech. During my visit, she had difficulty finding words. She states she has had chest pain over the last 3 months. They occur once a week. They last for several minutes. No ameliorating, exacerbating, or precipitating factors present. They do not appear to be exertion related. She has no previous cardiac workup. PAST MEDICAL HISTORY: Previous CVA, seizure disorder, hypertension, hyperlipidemia, diabetes mellitus, low back pain, anxiety, depression, hysterectomy, and cholecystectomy. SOCIAL HISTORY: No current tobacco or alcohol use. ALLERGIES: NONE. HOME MEDICATIONS: Include: 1. Aspirin. 2. Keppra. 3. Lisinopril/hydrochlorothiazide. 4. Tramadol. REVIEW OF SYSTEMS: A 10-point review of systems is reviewed as above, otherwise negative. PHYSICAL EXAMINATION: GENERAL: She has difficulty with speech, suggesting expressive aphasia. VITAL SIGNS: Blood pressure 120/72, pulse 93, temperature afebrile. NEUROLOGIC: The patient is alert and oriented x3 with no focal neurologic deficits. HEENT: Sclerae without icterus. Mouth has moist mucous membranes with normal pallor. NECK: No JVD. Carotid upstroke brisk. No bruits bilaterally. LUNGS: Clear to auscultation with unlabored respirations. BACK: No scoliosis or kyphosis. CARDIAC: Regular rate and rhythm with normal S1 and S2. No S3 or S4 noted. No significant rubs, murmurs, thrills, or gallops noted throughout the precordium. PMI is not displaced. There is no parasternal heave. ABDOMEN: Soft, nontender, nondistended. No peritoneal signs present. No hepatosplenomegaly. No abnormal striae. EXTREMITIES: 2+ femoral and 2+ dorsalis pedis pulses. No cyanosis, clubbing, or edema. SKIN: No gross abnormalities. DIAGNOSTIC STUDIES: CK and troponin negative. EKG; normal sinus rhythm, normal EKG. Stress/rest myocardial perfusion study with LVEF 63%. TID 1.48. She does have low end-diastolic and end-systolic volumes likely with over estimating T.I.D. When compared to her previous stress study in 2016, no significant changes are present. IMPRESSION: 1. Chest pain. 2. Elevated TID. 3. ? stroke. RECOMMENDATIONS: At this point, recommend medical therapy. Her LVEF does appear normal. It is estimated 60% to 65% on echo. Would continue aspirin in addition to atorvastatin and Plavix as prescribed. We will also recommend continuing lisinopril/hydrochlorothiazide. May consider outpatient Imdur. Otherwise, given atypical symptoms of chest pressure and increased TID from low end-diastolic and end-systolic volumes with negative EKG and negative troponins, we would recommend continue medical therapy. Otherwise, I have no further recommendations. Plan is to follow up in 1 week. Job ID: [id number]
--- NOTE | 2019-12-18 03:30 | DIS ---
DATE OF ADMISSION: 12/13/2019 DATE OF DISCHARGE: 12/17/2019 PRIMARY CARE PROVIDER: Shaheen Jeffery MD DISCHARGE DIAGNOSES: 1. Acute ischemic cerebrovascular accident. 2. Aphasia. 3. Transient alteration of awareness, present on admission. 4. Chest pain. 5. Chest pain most likely secondary to musculoskeletal etiology. CONDITION OF PATIENT ON THE DAY OF DISCHARGE: Stable. I assessed Ms. Jung on the day of discharge. She denies any chest pain or shortness of breath. Vital signs are stable. S1 and S2 are heard, regular. Lungs are clear to auscultation bilaterally. CONSULTATIONS DURING THIS HOSPITALIZATION: Neurology, Dr. Marshall and Cardiology, Dr. Villanueva. HOSPITAL COURSE: Ms. Jung is a pleasant 64-year-old lady, who was admitted to [facility] for acute ischemic cerebrovascular accident causing aphasia on December 13, 2019. MRI of the brain showed chronic type findings, which are stable. No acute intracranial abnormalities were demonstrated. EEG did not show any evidence of seizures. She was seen by Neurology Service. She was started on Plavix in addition to aspirin, which she was already taking. She also complained of chest pain. Chest pain resolved. She had a nuclear stress test on December 17, 2019, which showed a fixed defect in the distal anteroseptal wall. TID ratio was 1.48. She was seen by Cardiology Service. They cleared her for discharge home. DISCHARGE MEDICATIONS: 1. Allopurinol 300 mg daily. 2. Aspirin 81 mg daily. 3. Fluoxetine 20 mg 2 times a day. 4. Keppra 750 mg 2 times a day. 5. Lisinopril/hydrochlorothiazide 20/25 mg daily. 6. Lorazepam 0.5 mg 2 times a day. 7. Meloxicam 7.5 mg daily. 8. Metformin 500 mg 2 times a day. 9. Pantoprazole 40 mg daily. 10. Tramadol 50 mg 3 times a day. 11. Lipitor 40 mg at bedtime. 12. Plavix 75 mg daily. 13. Trazodone 150 mg at bedtime as needed. DISCHARGE INSTRUCTIONS: She was seen by Therapy Services. She was recommended inpatient rehab; however, the patient did not wish to go to inpatient rehab and wished to go home with home health. Arrangements are being made for the same. Many thanks for allowing me to participate in your patient's care. Please feel free to contact me with any questions or concerns. POST-ACUTE CARE FOLLOWUP: With primary care provider in 3 days. ACTIVITY: No restrictions. DIET: Diabetic and heart healthy. DISCHARGE DESTINATION: Home. TIME SPENT: Total amount of time spent coordinating this discharge: 32 minutes. Job ID: [id number]
--- NOTE | 2019-12-19 15:18 | CT ---
EXAM: CT angiogram head and neck with IV contrast and 3-D reconstructions PROVIDED CLINICAL HISTORY: Level 1 stroke. Patient is difficulty speaking and had a seizure on table. COMPARISON: 05/23/2017 FINDINGS: The aortic arch is patent with minimal vascular calcifications. There is a common origin of the brach iocephalic artery and left common carotid artery each of which is patent. Portion right subclavian artery is obscured due to dense contrast in adjacent veins, but the visualized bilateral subclavian a rteries are otherwise patent. Bilateral common carotid arteries are patent. Vascular calcifications and minimal atherosclerotic isabell que is seen at the distal right common carotid artery and to a lesser extent involving the distal left common carotid artery in the region of the carotid bulbs. There is mild narrowing of the distal right common carotid artery, but the degree of narrowing is less than 50%. Bilateral internal carotid arteries are patent. The proximal right vertebral artery is not well visualized due to artifact from adjacent dense contra st in venous structures. Remainder of the right vertebral artery is dominant and patent. The left vertebral artery is patent and terminates in PICA. The basilar artery and posterior cerebral arteries are patent. A type origin is seen involving the right posterior cerebral artery. Posterior communicating artery on the left is patent. The A1 segment right anterior cerebral artery is absent, and the A2 segments of each anterior cerebra l artery is supplied by the left A1 segment which is patent. The bilateral middle cerebral arteries are patent. No aneurysm is seen within the limitations of the technique of this exam. There has been no significant interval change when compared to the prior exam in 2017. There is mild volume loss seen dependently within the visualized upper lung zones. IMPRESSION: 1. Mild atherosclerotic plaque seen involving the distal common carotid arteries and carotid bulbs bi laterally greater on the right, but there is no significant stenosis present. 2. Patent bilateral vertebral arteries. Left vertebral artery terminates in PICA. 3. Patent bilateral internal carotid arteries. 4. No focal stenosis or branch occlusion is seen involving the ho-chunk of Larios or vertebrobasilar sy stem. 5. Above findings discussed with Dr. Canales in the emergency department on 12/13/2019 at 1106 hours. Transcribed Date/Time: 12/19/2019 3:18 PM
== END 2019-12-17 16:37 | disposition home or self-care (01) | DRG 65 ==
LOC: EDBD 10:32 → ERS 10:32 → 2SE 12:43
PROVIDERS: ADMIT Internal Medicine; ATTEND Internal Medicine
DX: I63.9 Cerebral infarction, unspecified (principal); G81.91 Hemiplegia, unspecified affecting right dominant side; G93.40 Encephalopathy, unspecified; R47.01 Aphasia; R07.89 Other chest pain; E11.9 Type 2 diabetes mellitus without complications; I10 Essential (primary) hypertension; G89.29 Other chronic pain; F41.9 Anxiety disorder, unspecified; E78.00 Pure hypercholesterolemia, unspecified; F31.9 Bipolar disorder, unspecified; Z90.710 Acquired absence of both cervix and uterus; Z90.49 Acquired absence of other specified parts of digestive tract
CPT/HCPCS: 36415; 36416; 70450; 70496; 70498; 70551; 71045; 78452; 80048; 80053; 80061; 80307; 81001; 82550; 82607; 82746; 83605; 83690; 84146; 84484; 85025; 85610; 85730; 93005; 93010; 93017; 93306; 95712; 95816; 95819; 95957; A9500; J0153; J1650; J2060; Q9967

== ENCOUNTER 2020-10-07 17:13 | Emergency (ER) | payer MEDICARE, MEDICAID ==
[~2020-10-07 17:13] MED LIST: Iopamidol-370 76% 500 ML 1 ML ONE
[2020-10-07 17:56] LABS: #Basophils 0.1 thou/uL (0.0-0.2); #Eosinphils 0.2 thou/uL (0.0-0.7); #Lymphocytes 3.4 thou/uL (1.20-3.40); #Monocytes 0.9 thou/uL (0.11-0.59); %Basophils 1.1 % (0.0-1.0); %Eosinophils 1.6 % (0.0-10.0); %Lymphocytes 29.7 % (21.0-51.0); %Monocytes 7.6 % (0.0-10.0); Hemoglobin 13.2 g/dL (12.0-16.0); Mean Corpuscular HGB CONC 33.7 g/dL (32.0-36.0); Mean Corpuscular Hemoglobin 27.7 pg (27.0-31.0); Mean Corpuscular Volume 82.2 fL (78.0-98.0); Mean Platelet Volume 9.5 fL (7.4-10.4); Platelet Count 357 thou/uL (130-400); RBC Distribution Width 13.4 % (11.5-14.5); Red Blood Cell (RBC) Count 4.76 mill/uL (4.20-5.40); White Blood Cell (WBC) Count 11.6 thou/uL (4.8-10.8)
[2020-10-07 18:26] LABS: ALT (SGPT) 24 U/L (8-55); AST (SGOT) 17 U/L (5-34); Albumin 4.5 g/dL (3.4-4.8); Alkaline Phosphatase 129 U/L (40-110); Anion Gap 17 mmol/L (10-20); BUN (Urea Nitrogen) 11 mg/dL (9.8-20.1); Bilirubin, Total 0.4 mg/dL (0.2-1.2); Calc. Creatinine Clearance 0 mL/min (70-130); Calcium 9.7 mg/dL (7.8-10.44); Carbon Dioxide 24 mmol/L (23-31); Chloride 102 mmol/L (98-107); Glucose 138 mg/dL (80-115); Lipase 30 U/L (8-78); Potassium 3.9 mmol/L (3.5-5.1); Protein, Total 7.5 g/dL (5.8-8.1); Sodium 139 mmol/L (136-145)
[2020-10-07 19:37] LABS: Bilirubin Negative (Negative); Blood, Urine Negative (Negative); Clarity Clear (Clear); Glucose, Urine (Dipstick) Normal (Negative); Ketone, Urine Negative (Negative); Leukocyte Negative Leu/uL (Negative); Nitrite Negative (Negative); Protein, Urine (Dipstick) Negative (Neg-Trace); Specific Gravity, Urine 1.021 (1.002-1.036); Urobilinogen Normal mg/dL (Less than 2); pH, Urine 5.5 (5.0-9.0)
== END 2020-10-07 21:15 | disposition home or self-care (01) ==
LOC: ERS 17:13
DX: K59.00 Constipation, unspecified (principal); I10 Essential (primary) hypertension; E78.00 Pure hypercholesterolemia, unspecified; K21.9 Gastro-esophageal reflux disease without esophagitis; M19.90 Unspecified osteoarthritis, unspecified site; E11.40 Type 2 diabetes mellitus with diabetic neuropathy, unspecified; Z79.82 Long term (current) use of aspirin; Z86.73 Personal history of transient ischemic attack (TIA), and cerebral infarction without residual deficits; Z79.84 Long term (current) use of oral hypoglycemic drugs; Z79.899 Other long term (current) drug therapy
CPT/HCPCS: 74177; 80053; 81003; 83690; 84484; 85025; 93005; Q9967

== ENCOUNTER 2021-01-20 15:03 | Observation (INO) | payer MEDICARE, MEDICAID ==
[2021-01-20 16:03] LABS: #Basophils 0.1 thou/uL (0.0-0.2); #Eosinphils 0.1 thou/uL (0.0-0.7); #Lymphocytes 2.5 thou/uL (1.20-3.40); #Monocytes 0.9 thou/uL (0.11-0.59); #Neutrophils 5.8 thou/uL (1.40-6.50); %Lymphocytes 26.2 % (21.0-51.0); %Neutrophils 61.8 % (42.0-75.0); Hemoglobin 13.5 g/dL (12.0-16.0); Mean Corpuscular HGB CONC 34.3 g/dL (32.0-36.0); Mean Corpuscular Volume 81.6 fL (78.0-98.0); Mean Platelet Volume 9.3 fL (7.4-10.4); Platelet Count 362 thou/uL (130-400); Red Blood Cell (RBC) Count 4.81 mill/uL (4.20-5.40); White Blood Cell (WBC) Count 9.4 thou/uL (4.8-10.8)
[2021-01-20 16:20] LABS: Prothrombin Time 12.9 sec (12.0-14.7)
[2021-01-20 16:30] LABS: ALT (SGPT) 23 U/L (8-55); AST (SGOT) 16 U/L (5-34); Albumin 4.1 g/dL (3.4-4.8); Alkaline Phosphatase 123 U/L (40-110); Anion Gap 15 mmol/L (10-20); BUN (Urea Nitrogen) 9 mg/dL (9.8-20.1); Bilirubin, Total 0.2 mg/dL (0.2-1.2); Calc. Creatinine Clearance 0 mL/min (70-130); Calcium 9.8 mg/dL (7.8-10.44); Carbon Dioxide 26 mmol/L (23-31); Chloride 99 mmol/L (98-107); Globulin 3.5 g/dL (2.4-3.5); Glucose 213 mg/dL (80-115); Potassium 3.4 mmol/L (3.5-5.1); Protein, Total 7.6 g/dL (5.8-8.1); Sodium 137 mmol/L (136-145)
[2021-01-20] MEDS ORDERED: Erythromycin Base 0.5% Oint 1 GM TUBE ONE (17:39)
[2021-01-20] MEDS ORDERED: Meclizine HCl 25 MG TAB ONE (17:39)
[2021-01-20] MEDS ORDERED: Aspirin Chewable 81 MG TAB ONE (17:39)
[2021-01-20] MEDS ORDERED: Meclizine HCl 25 MG TAB PO PRN (19:56)
[2021-01-20] MEDS ORDERED: Ondansetron PF 4 MG/2 ML Vial IVP PRN (20:03)
[2021-01-20] MEDS ORDERED: Labetalol HCl 100 MG/20 ML VIAL SLOW IVP PRN (20:03)
[2021-01-20] MEDS ORDERED: Ondansetron ODT 4 MG TAB PO PRN (20:03)
[2021-01-20] MEDS ORDERED: Dextrose 50% Abboject 50 ML SYRINGE SLOW IVP PRN (20:03)
[2021-01-20] MEDS ORDERED: Dextrose 5% in Water 1,000 ML IV PRN (20:03)
[2021-01-20] MEDS: Ciprofloxacin 0.3 % Oint 3.5 GM TUBE EA EYE SCH (22:42)
[2021-01-20] MEDS: FLUoxetine HCl 20 MG CAP PO SCH (22:43)
[2021-01-20] MEDS: levETIRAcetam 500 MG TAB PO SCH (22:43)
[2021-01-20] MEDS: Atorvastatin Calcium 40 MG TAB PO SCH (22:45)
[2021-01-20] MEDS: Famotidine 20 MG TAB PO SCH (22:45)
[2021-01-20] MEDS: HumaLOG 300 UNITS/3 ML VIAL SC PRN (22:45)
[2021-01-20 23:10] VITALS: BMI 31.0
[2021-01-21 05:02] LABS: #Basophils 0.1 thou/uL (0.0-0.2); #Eosinphils 0.2 thou/uL (0.0-0.7); #Lymphocytes 2.8 thou/uL (1.20-3.40); #Monocytes 0.9 thou/uL (0.11-0.59); #Neutrophils 6.3 thou/uL (1.40-6.50); %Basophils 1.2 % (0.0-1.0); %Eosinophils 1.5 % (0.0-10.0); %Lymphocytes 26.8 % (21.0-51.0); %Monocytes 8.9 % (0.0-10.0); %Neutrophils 61.6 % (42.0-75.0); Hemoglobin 12.3 g/dL (12.0-16.0); Mean Corpuscular HGB CONC 33.9 g/dL (32.0-36.0); Mean Corpuscular Hemoglobin 27.6 pg (27.0-31.0); Mean Corpuscular Volume 81.4 fL (78.0-98.0); Mean Platelet Volume 9.1 fL (7.4-10.4); Platelet Count 329 thou/uL (130-400); Red Blood Cell (RBC) Count 4.46 mill/uL (4.20-5.40); White Blood Cell (WBC) Count 10.2 thou/uL (4.8-10.8)
[2021-01-21] MEDS: Acetaminophen 500 MG TAB PO PRN ×3 (05:17→20:26)
[2021-01-21 05:29] LABS: Hemoglobin A1c 8.9 % (4.0-6.0)
[2021-01-21 05:30] LABS: Anion Gap 14 mmol/L (10-20); BUN (Urea Nitrogen) 9 mg/dL (9.8-20.1); Calc. Creatinine Clearance 109 mL/min (70-130); Calcium 9.4 mg/dL (7.8-10.44); Carbon Dioxide 24 mmol/L (23-31); Cardiac Risk 3.8 (Less than 4.5); Chloride 103 mmol/L (98-107); Cholesterol 119 mg/dl (< 200 Desired); Glucose 171 mg/dL (80-115); HDL Cholesterol 31 mg/dL (>60 Neg Risk); LDL Cholesterol, Calculated 66 mg/dL; Potassium 3.5 mmol/L (3.5-5.1); Sodium 137 mmol/L (136-145); Triglycerides 112 mg/dL (Less than 150)
[2021-01-21] MEDS: HumaLOG 300 UNITS/3 ML VIAL SC PRN ×4 (06:23→20:27)
[2021-01-21] MEDS: Lisinopril/Hydrochlorothiazide 20/25 mg Tablet PO SCH (07:53)
[2021-01-21] MEDS: Aspirin 325 mg Enteric Coated Tablet PO SCH (07:53)
[2021-01-21] MEDS: Ciprofloxacin 0.3 % Oint 3.5 GM TUBE EA EYE SCH ×2 (07:53→20:27)
[2021-01-21] MEDS: levETIRAcetam 500 MG TAB PO SCH ×2 (07:54→20:27)
[2021-01-21] MEDS: Loratadine 10 MG TAB PO SCH (07:55)
[2021-01-21] MEDS: metFORMIN 500 MG TAB PO SCH ×2 (07:55→16:47)
[2021-01-21] MEDS: Clopidogrel Bisulfate 75 MG TAB PO SCH (07:56)
[2021-01-21] MEDS: FLUoxetine HCl 20 MG CAP PO SCH ×2 (07:56→20:27)
[2021-01-21] MEDS: Famotidine 20 MG TAB PO SCH ×2 (07:56→20:28)
[2021-01-21 08:57] LABS: Troponin I Less than 0.010 ng/mL (< 0.028)
[2021-01-21] MEDS: Nitroglycerin 2% Ointment 1 INCH/1 GM Packet TOP SCH ×2 (09:28→16:44)
[2021-01-21 15:55] LABS: Troponin I Less than 0.010 ng/mL (< 0.028)
[2021-01-21 17:01] LABS: Free T4 (Free Thyroxine) 1.31 ng/dL (0.70-1.48); Thyroid Stimulating Hormone 0.2445 uIU/mL (0.35-4.94)
[2021-01-21] MEDS: Atorvastatin Calcium 40 MG TAB PO SCH (20:28)
[2021-01-22] MEDS: Nitroglycerin 2% Ointment 1 INCH/1 GM Packet TOP SCH ×2 (00:33→09:40)
[2021-01-22] MEDS: Acetaminophen 500 MG TAB PO PRN ×2 (05:22→15:10)
[2021-01-22] MEDS: HumaLOG 300 UNITS/3 ML VIAL SC PRN ×2 (05:22→12:54)
[2021-01-22] MEDS: Lisinopril/Hydrochlorothiazide 20/25 mg Tablet PO SCH (09:38)
[2021-01-22] MEDS: levETIRAcetam 500 MG TAB PO SCH (09:38)
[2021-01-22] MEDS: metFORMIN 500 MG TAB PO SCH ×2 (09:39→16:25)
[2021-01-22] MEDS: Ciprofloxacin 0.3 % Oint 3.5 GM TUBE EA EYE SCH (09:39)
[2021-01-22] MEDS: Clopidogrel Bisulfate 75 MG TAB PO SCH (09:39)
[2021-01-22] MEDS: Aspirin 325 mg Enteric Coated Tablet PO SCH (09:39)
[2021-01-22] MEDS: Loratadine 10 MG TAB PO SCH (09:39)
[2021-01-22] MEDS: Famotidine 20 MG TAB PO SCH (09:40)
[2021-01-22] MEDS: FLUoxetine HCl 20 MG CAP PO SCH (09:40)
[2021-01-22 15:24] VITALS: BP 121/69; TEMP 97.4
== END 2021-01-22 17:42 | disposition home or self-care (01) ==
LOC: ERS 15:03 → 2SE 17:35
PROVIDERS: ADMIT Family Medicine; ATTEND Internal Medicine
DX: G45.9 Transient cerebral ischemic attack, unspecified (principal); E11.40 Type 2 diabetes mellitus with diabetic neuropathy, unspecified; H10.9 Unspecified conjunctivitis; G40.909 Epilepsy, unspecified, not intractable, without status epilepticus; I10 Essential (primary) hypertension; E78.5 Hyperlipidemia, unspecified; K21.9 Gastro-esophageal reflux disease without esophagitis; M19.90 Unspecified osteoarthritis, unspecified site; I69.322 Dysarthria following cerebral infarction; I69.334 Monoplegia of upper limb following cerebral infarction affecting left non-dominant side; R07.9 Chest pain, unspecified; I08.1 Rheumatic disorders of both mitral and tricuspid valves; Z79.02 Long term (current) use of antithrombotics/antiplatelets; Z79.1 Long term (current) use of non-steroidal anti-inflammatories (NSAID); Z79.82 Long term (current) use of aspirin; Z79.84 Long term (current) use of oral hypoglycemic drugs; Z79.899 Other long term (current) drug therapy
CPT/HCPCS: 36415; 36416; 70450; 70496; 70498; 70551; 80048; 80053; 80061; 83036; 84439; 84443; 84484; 85025; 85610; 85730; 86038; 86225; 93005; 93010; 93306; 94760; 95816; 95819; 95957; G0378; J1815; Q9967

== ENCOUNTER 2021-04-07 15:36 | Inpatient (IN) | payer MEDICARE, MEDICAID ==
[2021-04-07 16:15] LABS: Actual Bicarbonate (HCO3v) 27 mEq/L (22-28); Analyzer IN Cardio ER; Base Excess 0.7 mEq/L (-2.0 to +3.0); Calcium, Ionized (venous) 1.18 mmol/L (1.16-1.32); Chloride (VBG) 92 mmol/L (98-106); Hemoglobin (Hb) 14.5 g/dL (11.7-16.0); Potassium (VBG) 4.05 mmol/L (3.70-5.30); Sodium 128.5 mmol/L (133-146); pH (venous) 7.35 (7.32-7.43)
[2021-04-07] MEDS ORDERED: Lorazepam 2 MG/ML VIAL ONE (16:19)
[2021-04-07 16:41] LABS: #Basophils 0.1 thou/uL (0.0-0.2); #Eosinphils 0.1 thou/uL (0.0-0.7); #Lymphocytes 2.7 thou/uL (1.20-3.40); #Monocytes 0.7 thou/uL (0.11-0.59); #Neutrophils 5.7 thou/uL (1.40-6.50); %Basophils 0.7 % (0.0-1.0); %Lymphocytes 29.4 % (21.0-51.0); %Monocytes 7.2 % (0.0-10.0); %Neutrophils 61.8 % (42.0-75.0); Hemoglobin 13.8 g/dL (12.0-16.0); Mean Corpuscular HGB CONC 32.9 g/dL (32.0-36.0); Mean Corpuscular Hemoglobin 26.5 pg (27.0-31.0); Mean Corpuscular Volume 80.7 fL (78.0-98.0); Mean Platelet Volume 10.2 fL (7.4-10.4); Platelet Count 308 thou/uL (130-400); RBC Distribution Width 12.9 % (11.5-14.5); Red Blood Cell (RBC) Count 5.21 mill/uL (4.20-5.40); White Blood Cell (WBC) Count 9.2 thou/uL (4.8-10.8)
[2021-04-07] MEDS ORDERED: levETIRAcetam in NS 1,500 MG in Premix Bag 1 BAG IVPB SCH (16:45)
[2021-04-07 17:27] LABS: ALT (SGPT) 26 U/L (8-55); AST (SGOT) 19 U/L (5-34); Albumin 4.1 g/dL (3.4-4.8); Alkaline Phosphatase 154 U/L (40-110); Anion Gap 15 mmol/L (10-20); BUN (Urea Nitrogen) 12 mg/dL (9.8-20.1); Bilirubin, Total 0.4 mg/dL (0.2-1.2); Calc. Creatinine Clearance 0 mL/min (70-130); Calcium 10.3 mg/dL (7.8-10.44); Carbon Dioxide 25 mmol/L (23-31); Chloride 95 mmol/L (98-107); Globulin 3.1 g/dL (2.4-3.5); Glucose 492 mg/dL (80-115); Potassium 4.4 mmol/L (3.5-5.1); Protein, Total 7.2 g/dL (5.8-8.1); Sodium 131 mmol/L (136-145)
[2021-04-07 20:54] LABS: Lactic Acid 2.6 mmol/L (0.5-2.2)
[2021-04-07 21:51] LABS: Troponin I Less than 0.010 ng/mL (< 0.028)
[2021-04-07] MEDS ORDERED: hydrALAZINE 20 MG/ML VIAL SLOW IVP PRN (23:12)
[2021-04-07] MEDS ORDERED: HYDROcodone/Acetaminophen 7.5/325 mg Tablet PO PRN (23:27)
[2021-04-07] MEDS ORDERED: Ondansetron PF 4 MG/2 ML Vial IVP PRN (23:27)
[2021-04-07] MEDS ORDERED: Senokot S 8.6-50 MG TAB PO PRN (23:27)
[2021-04-07 23:47] LABS: SARS-CoV-2 NAA Rapid Test Not Detected (NotDetected)
[2021-04-07 23:52] LABS: Bilirubin Negative (Negative); Blood, Urine Negative (Negative); Clarity Clear (Clear); Glucose, Urine (Dipstick) Greater than 1000 mg/dL (Negative); Ketone, Urine Negative (Negative); Leukocyte 25 Leu/uL (Negative); Nitrite Negative (Negative); Protein, Urine (Dipstick) Negative (Neg-Trace); RBC/HPF 0-3 HPF (0-3); Specific Gravity, Urine 1.019 (1.002-1.036); Squamous Epithelial 0-3 HPF (0-3); Urobilinogen Normal mg/dL (Less than 2); WBC/HPF 0-3 HPF (0-3); pH, Urine 6.5 (5.0-9.0)
[2021-04-07 23:53] LABS: Bacteria/HPF 1+ HPF (None Seen)
[2021-04-07] MEDS: Sodium Chloride 0.9% 1,000 ML IV SCH (23:55)
[2021-04-08] MEDS ORDERED: Dextrose 50% Abboject 50 ML SYRINGE SLOW IVP PRN ×2 (00:29→22:30)
[2021-04-08] MEDS ORDERED: Dextrose 5% in Water 1,000 ML IV PRN ×2 (00:29→22:30)
[2021-04-08] MEDS ORDERED: cefTRIAXone\\ROCEPHIN 1 GM VIAL ONE (02:15)
[2021-04-08] MEDS: cefTRIAXone\\ROCEPHIN 1 GM in Sodium Chloride 0.9% 100 ML IVPB SCH (02:53)
[2021-04-08] MEDS ORDERED: Acetaminophen 325 MG TAB ONE (04:54)
[2021-04-08] MEDS: Acetaminophen 325 MG TAB PO PRN ×2 (05:11→22:26)
[2021-04-08 06:35] LABS: #Basophils 0.1 thou/uL (0.0-0.2); #Eosinphils 0.1 thou/uL (0.0-0.7); #Lymphocytes 2.4 thou/uL (1.20-3.40); #Monocytes 0.7 thou/uL (0.11-0.59); #Neutrophils 6.1 thou/uL (1.40-6.50); %Basophils 0.9 % (0.0-1.0); %Lymphocytes 25.1 % (21.0-51.0); %Monocytes 7.9 % (0.0-10.0); %Neutrophils 65.1 % (42.0-75.0); Hemoglobin 12.9 g/dL (12.0-16.0); Mean Corpuscular HGB CONC 32.5 g/dL (32.0-36.0); Mean Corpuscular Hemoglobin 26.6 pg (27.0-31.0); Mean Platelet Volume 9.6 fL (7.4-10.4); Platelet Count 281 thou/uL (130-400); RBC Distribution Width 12.9 % (11.5-14.5); Red Blood Cell (RBC) Count 4.85 mill/uL (4.20-5.40); White Blood Cell (WBC) Count 9.4 thou/uL (4.8-10.8)
[2021-04-08 06:42] LABS: Hemoglobin A1c 11.5 % (4.0-6.0)
[2021-04-08 06:52] LABS: ALT (SGPT) 22 U/L (8-55); AST (SGOT) 15 U/L (5-34); Albumin 3.5 g/dL (3.4-4.8); Alkaline Phosphatase 126 U/L (40-110); Anion Gap 11 mmol/L (10-20); BUN (Urea Nitrogen) 9 mg/dL (9.8-20.1); Bilirubin, Total 0.3 mg/dL (0.2-1.2); Calc. Creatinine Clearance 0 mL/min (70-130); Calcium 9.3 mg/dL (7.8-10.44); Carbon Dioxide 25 mmol/L (23-31); Chloride 102 mmol/L (98-107); Globulin 2.6 g/dL (2.4-3.5); Glucose 377 mg/dL (80-115); Magnesium 1.7 mg/dL (1.6-2.6); Phosphorus 3.7 mg/dL (2.3-4.7); Potassium 4.3 mmol/L (3.5-5.1); Protein, Total 6.1 g/dL (5.8-8.1); Sodium 134 mmol/L (136-145)
[2021-04-08 06:54] LABS: Cardiac Risk 3.4 (Less than 4.5)
[2021-04-08] MEDS ORDERED: levETIRAcetam 500 MG TAB PO SCH (09:00)
[2021-04-08] MEDS ORDERED: Famotidine/PF 20 mg/2ml Vial ONE (09:07)
[2021-04-08] MEDS: levETIRAcetam 500 MG TAB PO SCH ×2 (11:06→22:27)
[2021-04-08] MEDS: Allopurinol 300 MG TAB PO SCH (11:06)
[2021-04-08] MEDS: Famotidine/PF 20 mg/2ml Vial SLOW IVP SCH ×2 (11:14→22:27)
[2021-04-08] MEDS ORDERED: HumaLOG 300 UNITS/3 ML VIAL ONE (13:27)
[2021-04-08] MEDS: HumaLOG 300 UNITS/3 ML VIAL SC PRN ×3 (13:45→22:27)
[2021-04-08] MEDS ORDERED: Lorazepam 0.5 MG TAB PO PRN (15:43)
[2021-04-08] MEDS: metFORMIN 500 MG TAB PO SCH (16:59)
[2021-04-08 18:56] VITALS: BMI 29.9
[2021-04-08] MEDS: Sodium Chloride 0.9% 1,000 ML IV SCH (22:26)
[2021-04-08] MEDS: Atorvastatin Calcium 10 MG TAB PO SCH (22:28)
[2021-04-08] MEDS ORDERED: Aspirin Chewable 81 MG TAB PO SCH (22:30)
[2021-04-08] MEDS ORDERED: HumaLOG 300 UNITS/3 ML VIAL SC PRN (22:30)
[2021-04-09] MEDS: cefTRIAXone\\ROCEPHIN 1 GM in Sodium Chloride 0.9% 100 ML IVPB SCH (00:07)
[2021-04-09] MEDS: Sodium Chloride 0.9% 1,000 ML IV SCH ×2 (02:42→17:11)
[2021-04-09] MEDS: HYDROcodone/Acetaminophen 5/325 mg Tablet PO PRN ×2 (04:55→20:08)
[2021-04-09] MEDS: HumaLOG 300 UNITS/3 ML VIAL SC PRN ×4 (05:56→20:10)
[2021-04-09 07:58] LABS: #Basophils 0.1 thou/uL (0.0-0.2); #Eosinphils 0.2 thou/uL (0.0-0.7); #Lymphocytes 2.7 thou/uL (1.20-3.40); #Monocytes 0.9 thou/uL (0.11-0.59); #Neutrophils 6.4 thou/uL (1.40-6.50); %Basophils 0.8 % (0.0-1.0); %Eosinophils 1.6 % (0.0-10.0); %Lymphocytes 26.4 % (21.0-51.0); %Monocytes 8.3 % (0.0-10.0); %Neutrophils 62.8 % (42.0-75.0); Hemoglobin 12.7 g/dL (12.0-16.0); Mean Corpuscular HGB CONC 32.5 g/dL (32.0-36.0); Mean Corpuscular Hemoglobin 26.7 pg (27.0-31.0); Mean Corpuscular Volume 82.1 fL (78.0-98.0); Mean Platelet Volume 9.7 fL (7.4-10.4); Platelet Count 285 thou/uL (130-400); RBC Distribution Width 12.8 % (11.5-14.5); Red Blood Cell (RBC) Count 4.76 mill/uL (4.20-5.40); White Blood Cell (WBC) Count 10.2 thou/uL (4.8-10.8)
[2021-04-09 08:18] LABS: ALT (SGPT) 24 U/L (8-55); AST (SGOT) 21 U/L (5-34); Albumin 3.5 g/dL (3.4-4.8); Alkaline Phosphatase 125 U/L (40-110); Anion Gap 8 mmol/L (10-20); BUN (Urea Nitrogen) 9 mg/dL (9.8-20.1); Bilirubin, Total 0.3 mg/dL (0.2-1.2); Calc. Creatinine Clearance 100 mL/min (70-130); Calcium 9.1 mg/dL (7.8-10.44); Carbon Dioxide 27 mmol/L (23-31); Chloride 106 mmol/L (98-107); Globulin 2.5 g/dL (2.4-3.5); Glucose 271 mg/dL (80-115); Potassium 4.1 mmol/L (3.5-5.1); Sodium 137 mmol/L (136-145)
[2021-04-09] MEDS: metFORMIN 500 MG TAB PO SCH ×2 (08:47→17:07)
[2021-04-09] MEDS: Famotidine/PF 20 mg/2ml Vial SLOW IVP SCH ×2 (08:48→20:10)
[2021-04-09] MEDS: Allopurinol 300 MG TAB PO SCH (08:48)
[2021-04-09] MEDS: Clopidogrel Bisulfate 75 MG TAB PO SCH (08:48)
[2021-04-09] MEDS: Aspirin 81 mg Enteric Coated Tablet PO SCH (08:48)
[2021-04-09] MEDS: levETIRAcetam 500 MG TAB PO SCH ×2 (08:48→20:10)
[2021-04-09] MEDS: Nystatin/Triamcinolone Ointment 15 GM TUBE TOP SCH ×3 (08:48→20:11)
[2021-04-09] MEDS: glipiZIDE 5 MG TAB PO SCH (17:07)
[2021-04-09] MEDS: Atorvastatin Calcium 10 MG TAB PO SCH (20:10)
[2021-04-10] MEDS: HumaLOG 300 UNITS/3 ML VIAL SC PRN (05:58)
[2021-04-10] MEDS: Sodium Chloride 0.9% 1,000 ML IV SCH (05:58)
[2021-04-10] MEDS: Nystatin/Triamcinolone Ointment 15 GM TUBE TOP SCH (09:05)
[2021-04-10] MEDS: Clopidogrel Bisulfate 75 MG TAB PO SCH (09:06)
[2021-04-10] MEDS: Aspirin 81 mg Enteric Coated Tablet PO SCH (09:06)
[2021-04-10] MEDS: glipiZIDE 5 MG TAB PO SCH (09:06)
[2021-04-10] MEDS: Allopurinol 300 MG TAB PO SCH (09:06)
[2021-04-10] MEDS: levETIRAcetam 500 MG TAB PO SCH (09:06)
[2021-04-10] MEDS: metFORMIN 500 MG TAB PO SCH (09:06)
[2021-04-10] MEDS: Famotidine/PF 20 mg/2ml Vial SLOW IVP SCH (09:07)
[2021-04-10 18:13] VITALS: BP 119/70; TEMP 97.9
== END 2021-04-10 12:35 | disposition home or self-care (01) | DRG 312 ==
LOC: ERS 15:36 → ERHOLD 20:53 → 3SE 04-08 18:17 → OBSVTOIN 04-09 15:49
PROVIDERS: ADMIT Internal Medicine; ATTEND Student in an Organized Health Care Education/Training Program
DX: R55 Syncope and collapse (principal); G93.49 Other encephalopathy; T42.6X5A Adverse effect of other antiepileptic and sedative-hypnotic drugs, initial encounter; Z20.822 Contact with and (suspected) exposure to COVID-19; E11.65 Type 2 diabetes mellitus with hyperglycemia; F41.9 Anxiety disorder, unspecified; F32.9 Major depressive disorder, single episode, unspecified; M54.5 Low back pain; G89.29 Other chronic pain; K21.9 Gastro-esophageal reflux disease without esophagitis; I15.2 Hypertension secondary to endocrine disorders; I08.1 Rheumatic disorders of both mitral and tricuspid valves; E11.40 Type 2 diabetes mellitus with diabetic neuropathy, unspecified; Z87.440 Personal history of urinary (tract) infections; Z79.899 Other long term (current) drug therapy; Z79.82 Long term (current) use of aspirin; Z79.02 Long term (current) use of antithrombotics/antiplatelets; Z79.84 Long term (current) use of oral hypoglycemic drugs; Z90.49 Acquired absence of other specified parts of digestive tract; Z90.710 Acquired absence of both cervix and uterus
CPT/HCPCS: 36415; 36416; 70450; 70551; 71045; 80053; 80061; 81003; 81015; 82010; 82805; 83036; 83605; 83735; 83880; 84100; 84146; 84443; 84484; 85025; 87040; 87086; 93005; 93010; 93306; 95712; 95819; 95957; 96365; 96375; 96376; G0378; J0696; J1815; J1953; J2060; J3490; J7050; S0028; U0002

== ENCOUNTER 2021-11-16 04:09 | Emergency (ER) | payer MEDICARE, MEDICAID ==
[2021-11-16 05:36] LABS: Bilirubin Negative (Negative); Blood, Urine Negative (Negative); Clarity Clear (Clear); Glucose, Urine (Dipstick) Normal (Negative); Ketone, Urine Negative (Negative); Leukocyte 250 Leu/uL (Negative); Nitrite Negative (Negative); Protein, Urine (Dipstick) Negative (Neg-Trace); RBC/HPF 0-3 HPF (0-3); Specific Gravity, Urine 1.013 (1.002-1.036); Urobilinogen Normal mg/dL (Less than 2); pH, Urine 5.5 (5.0-9.0)
[2021-11-16 05:37] LABS: Bacteria/HPF 1+ HPF (None Seen)
[2021-11-16 05:50] LABS: #Basophils 0.2 thou/uL (0.0-0.2); #Eosinphils 0.1 thou/uL (0.0-0.7); #Lymphocytes 2.8 thou/uL (1.20-3.40); #Neutrophils 6.6 thou/uL (1.40-6.50); %Basophils 1.5 % (0.0-1.0); %Eosinophils 1.3 % (0.0-10.0); %Lymphocytes 25.9 % (21.0-51.0); %Monocytes 9.5 % (0.0-10.0); %Neutrophils 61.8 % (42.0-75.0); Hemoglobin 12.9 g/dL (12.0-16.0); Mean Corpuscular Hemoglobin 28.6 pg (27.0-31.0); Mean Corpuscular Volume 84.3 fL (78.0-98.0); Platelet Count 319 thou/uL (130-400); RBC Distribution Width 13.3 % (11.5-14.5); Red Blood Cell (RBC) Count 4.52 mill/uL (4.20-5.40); White Blood Cell (WBC) Count 10.6 thou/uL (4.8-10.8)
[2021-11-16 06:16] LABS: ALT (SGPT) 15 U/L (8-55); AST (SGOT) 11 U/L (5-34); Albumin 4.1 g/dL (3.4-4.8); Alkaline Phosphatase 99 U/L (40-110); Anion Gap 14 mmol/L (10-20); BUN (Urea Nitrogen) 12 mg/dL (9.8-20.1); Bilirubin, Total 0.3 mg/dL (0.2-1.2); Calc. Creatinine Clearance 0 mL/min (70-130); Calcium 9.5 mg/dL (7.8-10.44); Carbon Dioxide 25 mmol/L (23-31); Chloride 104 mmol/L (98-107); Globulin 2.7 g/dL (2.4-3.5); Glucose 153 mg/dL (80-115); Potassium 3.5 mmol/L (3.5-5.1); Protein, Total 6.8 g/dL (5.8-8.1); Sodium 139 mmol/L (136-145)
[2021-11-16] MEDS ORDERED: Iopamidol-370 76% 500 ML 1 ML ONE (09:06)
== END 2021-11-16 08:47 | disposition home or self-care (01) ==
LOC: ERS 04:09
DX: R59.0 Localized enlarged lymph nodes (principal); E11.9 Type 2 diabetes mellitus without complications; I10 Essential (primary) hypertension; E78.00 Pure hypercholesterolemia, unspecified; Z86.73 Personal history of transient ischemic attack (TIA), and cerebral infarction without residual deficits; K21.9 Gastro-esophageal reflux disease without esophagitis; E11.40 Type 2 diabetes mellitus with diabetic neuropathy, unspecified; Z79.82 Long term (current) use of aspirin; Z79.899 Other long term (current) drug therapy
CPT/HCPCS: 70491; 80053; 81003; 81015; 83880; 84484; 85025; 93005; Q9967

== ENCOUNTER 2021-11-26 08:48 | Inpatient (IN) | payer MEDICARE, MEDICAID ==
[2021-11-26 09:38] LABS: Bacteria/HPF None Seen HPF (None Seen); Bilirubin Negative (Negative); Blood, Urine Trace (Negative); Clarity Clear (Clear); Glucose, Urine (Dipstick) Normal (Negative); Ketone, Urine Negative (Negative); Leukocyte 25 Leu/uL (Negative); Nitrite Negative (Negative); Protein, Urine (Dipstick) Negative (Neg-Trace); RBC/HPF 0-3 HPF (0-3); Specific Gravity, Urine 1.012 (1.002-1.036); Squamous Epithelial 0-3 HPF (0-3); Urobilinogen Normal mg/dL (Less than 2); WBC/HPF 0-3 HPF (0-3); pH, Urine 5.5 (5.0-9.0)
[2021-11-26] MEDS ORDERED: Morphine 4 MG/ML VIAL ONE (09:56)
[2021-11-26] MEDS ORDERED: Ondansetron PF 4 MG/2 ML Vial ONE (09:56)
[2021-11-26 09:57] LABS: #Basophils 0.1 thou/uL (0.0-0.2); #Eosinphils 0.1 thou/uL (0.0-0.7); #Monocytes 0.7 thou/uL (0.11-0.59); #Neutrophils 9.2 thou/uL (1.40-6.50); %Basophils 0.7 % (0.0-1.0); %Eosinophils 1.1 % (0.0-10.0); %Lymphocytes 16.7 % (21.0-51.0); %Monocytes 5.9 % (0.0-10.0); %Neutrophils 75.7 % (42.0-75.0); Hemoglobin 13.5 g/dL (12.0-16.0); Mean Corpuscular HGB CONC 32.1 g/dL (32.0-36.0); Mean Corpuscular Hemoglobin 27.4 pg (27.0-31.0); Mean Corpuscular Volume 85.4 fL (78.0-98.0); Mean Platelet Volume 9.1 fL (7.4-10.4); Platelet Count 360 thou/uL (130-400); RBC Distribution Width 13.6 % (11.5-14.5); Red Blood Cell (RBC) Count 4.92 mill/uL (4.20-5.40); White Blood Cell (WBC) Count 12.1 thou/uL (4.8-10.8)
[2021-11-26 10:09] LABS: Prothrombin Time 13.1 sec (12.0-14.7)
[2021-11-26 10:10] LABS: PTT 29.5 sec (22.9-36.1)
[2021-11-26 10:12] LABS: D-Dimer Test 0.67 *mcg/mL (0.27-0.43)
[2021-11-26 10:31] LABS: ALT (SGPT) 15 U/L (8-55); AST (SGOT) 11 U/L (5-34); Albumin 4.2 g/dL (3.4-4.8); Alkaline Phosphatase 102 U/L (40-110); Anion Gap 16 mmol/L (10-20); BUN (Urea Nitrogen) 15 mg/dL (9.8-20.1); Bilirubin, Total 0.2 mg/dL (0.2-1.2); Calc. Creatinine Clearance 0 mL/min (70-130); Calcium 10.1 mg/dL (7.8-10.44); Carbon Dioxide 24 mmol/L (23-31); Chloride 101 mmol/L (98-107); Globulin 3.5 g/dL (2.4-3.5); Glucose 223 mg/dL (80-115); Potassium 3.9 mmol/L (3.5-5.1); Protein, Total 7.7 g/dL (5.8-8.1); Sodium 137 mmol/L (136-145)
[2021-11-26] MEDS ORDERED: Acetaminophen 500 MG TAB ONE (11:44)
[2021-11-26] MEDS ORDERED: Prochlorperazine 10 MG/2 ML VIAL ONE (11:44)
[2021-11-26] MEDS ORDERED: Ondansetron ODT 4 MG TAB PO PRN (12:34)
[2021-11-26] MEDS ORDERED: Bisacodyl 5 MG TAB PO PRN (12:34)
[2021-11-26] MEDS ORDERED: Acetaminophen 650 MG Suppository PR PRN (12:34)
[2021-11-26] MEDS ORDERED: Ondansetron PF 4 MG/2 ML Vial IVP PRN (12:34)
[2021-11-26] MEDS ORDERED: Senokot S 8.6-50 MG TAB PO PRN (12:34)
[2021-11-26 14:00] LABS: Troponin I 0.014 ng/mL (< 0.028)
[2021-11-26 14:07] LABS: Magnesium 1.8 mg/dL (1.6-2.6)
[2021-11-26 14:53] VITALS: BMI 29.9
[2021-11-26] MEDS: cefTRIAXone\\ROCEPHIN 1 GM in Sodium Chloride 0.9% 100 ML IVPB SCH (15:30)
[2021-11-26] MEDS: glipiZIDE 5 MG TAB PO SCH (15:31)
[2021-11-26] MEDS: traMADol HCl 50 MG TAB PO PRN (15:31)
[2021-11-26] MEDS: Nitroglycerin 2% Ointment 1 INCH/1 GM Packet TOP SCH (15:34)
[2021-11-26 16:52] LABS: Troponin I Less than 0.010 ng/mL (< 0.028)
[2021-11-26] MEDS: Atorvastatin Calcium 10 MG TAB PO SCH (21:03)
[2021-11-26] MEDS: FLUoxetine HCl 20 MG CAP PO SCH (21:04)
[2021-11-26] MEDS: metFORMIN 500 MG TAB PO SCH (21:04)
[2021-11-26] MEDS: levETIRAcetam 500 MG TAB PO SCH (21:04)
[2021-11-26] MEDS: Acetaminophen 325 MG TAB PO PRN (21:05)
[2021-11-27] MEDS: Nitroglycerin 2% Ointment 1 INCH/1 GM Packet TOP SCH ×3 (01:02→18:11)
[2021-11-27 02:13] LABS: SARS-CoV-2 PCR by NAA Not Detected (NotDetected)
[2021-11-27] MEDS: Acetaminophen 325 MG TAB PO PRN (05:38)
[2021-11-27 06:15] LABS: #Lymphocytes 0.7 thou/uL (1.20-3.40); #Monocytes 0.6 thou/uL (0.11-0.59); #Neutrophils 14.1 thou/uL (1.40-6.50); %Basophils 0.2 % (0.0-1.0); %Eosinophils 0.2 % (0.0-10.0); %Lymphocytes 4.3 % (21.0-51.0); %Monocytes 3.9 % (0.0-10.0); %Neutrophils 91.4 % (42.0-75.0); Hemoglobin 13.5 g/dL (12.0-16.0); Mean Corpuscular HGB CONC 32.9 g/dL (32.0-36.0); Mean Corpuscular Hemoglobin 28.3 pg (27.0-31.0); Mean Platelet Volume 9.2 fL (7.4-10.4); Platelet Count 351 thou/uL (130-400); RBC Distribution Width 13.7 % (11.5-14.5); Red Blood Cell (RBC) Count 4.76 mill/uL (4.20-5.40); White Blood Cell (WBC) Count 15.4 thou/uL (4.8-10.8)
[2021-11-27 06:34] LABS: Anion Gap 17 mmol/L (10-20); BUN (Urea Nitrogen) 12 mg/dL (9.8-20.1); Calc. Creatinine Clearance 92 mL/min (70-130); Carbon Dioxide 21 mmol/L (23-31); Cardiac Risk 2.9 (Less than 4.5); Chloride 101 mmol/L (98-107); Cholesterol 135 mg/dl (< 200 Desired); Glucose 289 mg/dL (80-115); HDL Cholesterol 46 mg/dL (>60 Neg Risk); LDL Cholesterol, Calculated 65 mg/dL; Potassium 3.7 mmol/L (3.5-5.1); Sodium 135 mmol/L (136-145); Triglycerides 120 mg/dL (Less than 150)
[2021-11-27] MEDS: metFORMIN 500 MG TAB PO SCH (08:00)
[2021-11-27] MEDS: glipiZIDE 5 MG TAB PO SCH ×2 (08:00→17:18)
[2021-11-27] MEDS ORDERED: Aspirin Chewable 81 MG TAB PO SCH (09:00)
[2021-11-27] MEDS ORDERED: Non-Formulary Item 1 EACH (Linaclotide [Linzess] 290 MCG Capsule) PO SCH (09:00)
[2021-11-27] MEDS ORDERED: ADENOSINE 60 MG/20 ML VIAL ONE (09:27)
[2021-11-27] MEDS: FLUoxetine HCl 20 MG CAP PO SCH ×2 (11:20→20:29)
[2021-11-27] MEDS: Allopurinol 300 MG TAB PO SCH (11:20)
[2021-11-27] MEDS: Aspirin 81 mg Enteric Coated Tablet PO SCH (11:20)
[2021-11-27] MEDS: levETIRAcetam 500 MG TAB PO SCH ×2 (11:20→20:29)
[2021-11-27] MEDS: Clopidogrel Bisulfate 75 MG TAB PO SCH (11:22)
[2021-11-27] MEDS ORDERED: Dextrose 50% Abboject 50 ML SYRINGE SLOW IVP PRN (15:32)
[2021-11-27] MEDS ORDERED: Dextrose 5% in Water 1,000 ML IV PRN (15:32)
[2021-11-27] MEDS ORDERED: Polyethylene Glycol 3350 17 GM Packet PO PRN (16:41)
[2021-11-27] MEDS ORDERED: Electrolyte Replacement Protocol 1 EACH FS SCH (16:45)
[2021-11-27] MEDS ORDERED: traZODone HCl 150 MG TAB PO SCH ×3 (17:15→21:00)
[2021-11-27] MEDS: cefTRIAXone\\ROCEPHIN 1 GM in Sodium Chloride 0.9% 100 ML IVPB SCH (17:18)
[2021-11-27] MEDS: Sodium Chloride 0.9% 1,000 ML IV SCH (17:19)
[2021-11-27] MEDS: traMADol HCl 50 MG TAB PO PRN (17:32)
[2021-11-27] MEDS: Lorazepam 0.5 MG TAB PO SCH (20:29)
[2021-11-27] MEDS: Atorvastatin Calcium 10 MG TAB PO SCH (20:30)
[2021-11-27] MEDS: Insulin Regular 300 UNITS/3 ML VIAL SC PRN (21:32)
[2021-11-27] MEDS ORDERED: Magnesium 2 GM/50 ML(in water) 2 GM in Premix Bag 1 BAG IVPB SCH (22:00)
[2021-11-28 04:52] LABS: #Eosinphils 0.1 thou/uL (0.0-0.7); #Lymphocytes 1.3 thou/uL (1.20-3.40); #Monocytes 1.2 thou/uL (0.11-0.59); #Neutrophils 14.9 thou/uL (1.40-6.50); %Basophils 0.1 % (0.0-1.0); %Eosinophils 0.5 % (0.0-10.0); %Lymphocytes 7.5 % (21.0-51.0); %Monocytes 6.9 % (0.0-10.0); Mean Corpuscular HGB CONC 33.4 g/dL (32.0-36.0); Mean Corpuscular Hemoglobin 28.4 pg (27.0-31.0); Mean Platelet Volume 9.1 fL (7.4-10.4); Platelet Count 328 thou/uL (130-400); RBC Distribution Width 13.7 % (11.5-14.5); Red Blood Cell (RBC) Count 4.23 mill/uL (4.20-5.40); White Blood Cell (WBC) Count 17.5 thou/uL (4.8-10.8)
[2021-11-28 05:16] LABS: ALT (SGPT) 11 U/L (8-55); AST (SGOT) 10 U/L (5-34); Albumin 3.3 g/dL (3.4-4.8); Alkaline Phosphatase 83 U/L (40-110); Anion Gap 13 mmol/L (10-20); BUN (Urea Nitrogen) 12 mg/dL (9.8-20.1); Bilirubin, Total 0.3 mg/dL (0.2-1.2); CRP (Inflammatory) 2.74 mg/dL (= or < 0.5); Calc. Creatinine Clearance 91 mL/min (70-130); Calcium 8.6 mg/dL (7.8-10.44); Carbon Dioxide 26 mmol/L (23-31); Chloride 101 mmol/L (98-107); Globulin 2.8 g/dL (2.4-3.5); Glucose 433 mg/dL (80-115); Magnesium 2.3 mg/dL (1.6-2.6); Phosphorus 2.3 mg/dL (2.3-4.7); Potassium 3.9 mmol/L (3.5-5.1); Protein, Total 6.1 g/dL (5.8-8.1); Sodium 136 mmol/L (136-145)
[2021-11-28] MEDS: glipiZIDE 5 MG TAB PO SCH (05:39)
[2021-11-28] MEDS: Insulin Regular 300 UNITS/3 ML VIAL SC PRN ×3 (05:40→20:42)
[2021-11-28] MEDS: Sodium Chloride 0.9% 1,000 ML IV SCH (05:40)
[2021-11-28] MEDS: traMADol HCl 50 MG TAB PO PRN (05:44)
[2021-11-28] MEDS: Acetaminophen 325 MG TAB PO PRN (05:45)
[2021-11-28] MEDS: levETIRAcetam 500 MG TAB PO SCH ×2 (08:27→20:32)
[2021-11-28] MEDS: FLUoxetine HCl 20 MG CAP PO SCH ×2 (08:28→20:32)
[2021-11-28] MEDS: Aspirin 81 mg Enteric Coated Tablet PO SCH (08:28)
[2021-11-28] MEDS: Saccharomyces boulardii 250 MG CAP PO SCH (08:29)
[2021-11-28] MEDS: Allopurinol 300 MG TAB PO SCH (08:29)
[2021-11-28] MEDS: Lorazepam 0.5 MG TAB PO SCH ×3 (08:29→20:33)
[2021-11-28] MEDS: Clopidogrel Bisulfate 75 MG TAB PO SCH (08:30)
[2021-11-28] MEDS ORDERED: Insulin Regular 300 UNITS/3 ML VIAL SC PRN (09:40)
[2021-11-28 10:22] LABS: Hemoglobin A1c 7.8 % (4.0-6.0)
[2021-11-28] MEDS: cefTRIAXone\\ROCEPHIN 1 GM in Sodium Chloride 0.9% 100 ML IVPB SCH (14:32)
[2021-11-28] MEDS ORDERED: Glimepiride 2 MG TAB PO SCH (16:30)
[2021-11-28] MEDS: NPH, Human Insulin Isophane 300 UNIT/3 ML VIAL SC SCH (17:47)
[2021-11-28] MEDS: Atorvastatin Calcium 10 MG TAB PO SCH (20:31)
[2021-11-28] MEDS: traZODone HCl 150 MG TAB PO SCH (20:33)
[2021-11-29] MEDS: Sodium Chloride 0.9% 1,000 ML IV SCH ×2 (00:25→13:03)
[2021-11-29] MEDS: Insulin Regular 300 UNITS/3 ML VIAL SC PRN ×5 (02:27→20:32)
[2021-11-29] MEDS: traMADol HCl 50 MG TAB PO PRN ×2 (02:27→20:31)
[2021-11-29 05:27] LABS: #Eosinphils 0.1 thou/uL (0.0-0.7); #Lymphocytes 1.9 thou/uL (1.20-3.40); #Monocytes 1.3 thou/uL (0.11-0.59); #Neutrophils 11.3 thou/uL (1.40-6.50); %Basophils 0.3 % (0.0-1.0); %Eosinophils 0.7 % (0.0-10.0); %Lymphocytes 12.8 % (21.0-51.0); %Monocytes 8.9 % (0.0-10.0); %Neutrophils 77.3 % (42.0-75.0); Hemoglobin 11.5 g/dL (12.0-16.0); Mean Corpuscular HGB CONC 34.2 g/dL (32.0-36.0); Mean Corpuscular Hemoglobin 29.3 pg (27.0-31.0); Mean Corpuscular Volume 85.7 fL (78.0-98.0); Mean Platelet Volume 8.7 fL (7.4-10.4); Platelet Count 329 thou/uL (130-400); RBC Distribution Width 13.6 % (11.5-14.5); Red Blood Cell (RBC) Count 3.91 mill/uL (4.20-5.40); White Blood Cell (WBC) Count 14.6 thou/uL (4.8-10.8)
[2021-11-29 05:56] LABS: Anion Gap 9 mmol/L (10-20); BUN (Urea Nitrogen) 11 mg/dL (9.8-20.1); Calc. Creatinine Clearance 104 mL/min (70-130); Calcium 8.3 mg/dL (7.8-10.44); Carbon Dioxide 28 mmol/L (23-31); Chloride 105 mmol/L (98-107); Glucose 304 mg/dL (80-115); Potassium 3.9 mmol/L (3.5-5.1); Sodium 138 mmol/L (136-145)
[2021-11-29] MEDS: Allopurinol 300 MG TAB PO SCH (08:15)
[2021-11-29] MEDS: levETIRAcetam 500 MG TAB PO SCH ×2 (08:15→20:30)
[2021-11-29] MEDS: Glimepiride 2 MG TAB PO SCH (08:15)
[2021-11-29] MEDS: FLUoxetine HCl 20 MG CAP PO SCH ×2 (08:15→20:31)
[2021-11-29] MEDS: Lorazepam 0.5 MG TAB PO SCH ×3 (08:16→20:31)
[2021-11-29] MEDS: Saccharomyces boulardii 250 MG CAP PO SCH (08:16)
[2021-11-29] MEDS: NPH, Human Insulin Isophane 300 UNIT/3 ML VIAL SC SCH (08:17)
[2021-11-29] MEDS ORDERED: metFORMIN 500 MG TAB PO SCH (09:00)
[2021-11-29] MEDS: Clopidogrel Bisulfate 75 MG TAB PO SCH (09:42)
[2021-11-29] MEDS ORDERED: Cepastat Lozenges 1 LOZ PO PRN ×2 (10:28→10:57)
[2021-11-29] MEDS ORDERED: Chloraseptic Spray 180 ml Bottle PO PRN (10:28)
[2021-11-29] MEDS ORDERED: MUCINEX INSTASOOTHE SPRY (115 ML BOT) PO PRN (11:01)
[2021-11-29] MEDS: cefTRIAXone\\ROCEPHIN 1 GM in Sodium Chloride 0.9% 100 ML IVPB SCH (13:04)
[2021-11-29] MEDS: metFORMIN 500 MG TAB PO SCH (16:25)
[2021-11-29] MEDS ORDERED: Glimepiride 2 MG TAB PO SCH (16:30)
[2021-11-29] MEDS: traZODone HCl 150 MG TAB PO SCH (20:30)
[2021-11-29] MEDS: Atorvastatin Calcium 10 MG TAB PO SCH (20:31)
[2021-11-30 03:36] VITALS: TEMP 98.1
[2021-11-30 05:45] LABS: #Basophils 0.1 thou/uL (0.0-0.2); #Eosinphils 0.1 thou/uL (0.0-0.7); #Lymphocytes 2.9 thou/uL (1.20-3.40); #Neutrophils 8.6 thou/uL (1.40-6.50); %Basophils 0.4 % (0.0-1.0); %Eosinophils 0.8 % (0.0-10.0); %Monocytes 8.2 % (0.0-10.0); %Neutrophils 67.7 % (42.0-75.0); Hemoglobin 11.6 g/dL (12.0-16.0); Mean Corpuscular HGB CONC 33.6 g/dL (32.0-36.0); Mean Corpuscular Hemoglobin 29.1 pg (27.0-31.0); Mean Corpuscular Volume 86.5 fL (78.0-98.0); Mean Platelet Volume 8.6 fL (7.4-10.4); Platelet Count 306 thou/uL (130-400); RBC Distribution Width 13.6 % (11.5-14.5); White Blood Cell (WBC) Count 12.7 thou/uL (4.8-10.8)
[2021-11-30] MEDS: Insulin Regular 300 UNITS/3 ML VIAL SC PRN (05:53)
[2021-11-30 06:04] LABS: ALT (SGPT) 22 U/L (8-55); AST (SGOT) 14 U/L (5-34); Albumin 3.1 g/dL (3.4-4.8); Alkaline Phosphatase 64 U/L (40-110); Anion Gap 12 mmol/L (10-20); BUN (Urea Nitrogen) 16 mg/dL (9.8-20.1); Bilirubin, Total 0.2 mg/dL (0.2-1.2); CRP (Inflammatory) Less than 0.50 mg/dL (= or < 0.5); Calc. Creatinine Clearance 104 mL/min (70-130); Calcium 8.5 mg/dL (7.8-10.44); Carbon Dioxide 25 mmol/L (23-31); Chloride 108 mmol/L (98-107); Globulin 2.3 g/dL (2.4-3.5); Glucose 194 mg/dL (80-115); Protein, Total 5.4 g/dL (5.8-8.1); Sodium 141 mmol/L (136-145)
[2021-11-30 07:30] VITALS: BP 140/87
[2021-11-30] MEDS ORDERED: NPH, Human Insulin Isophane 300 UNIT/3 ML VIAL SC SCH (07:30)
[2021-11-30] MEDS: FLUoxetine HCl 20 MG CAP PO SCH (07:56)
[2021-11-30] MEDS: Saccharomyces boulardii 250 MG CAP PO SCH (07:56)
[2021-11-30] MEDS: Clopidogrel Bisulfate 75 MG TAB PO SCH (07:56)
[2021-11-30] MEDS: Allopurinol 300 MG TAB PO SCH (07:56)
[2021-11-30] MEDS: levETIRAcetam 500 MG TAB PO SCH (07:57)
[2021-11-30] MEDS: metFORMIN 500 MG TAB PO SCH (07:57)
[2021-11-30] MEDS: Glimepiride 2 MG TAB PO SCH (07:58)
[2021-11-30] MEDS: Lorazepam 0.5 MG TAB PO SCH (08:00)
[2021-11-30] MEDS: Acetaminophen 325 MG TAB PO PRN (08:03)
[2021-11-30] MEDS ORDERED: Aspirin 81 mg Enteric Coated Tablet PO SCH (09:15)
== END 2021-11-30 11:35 | disposition home or self-care (01) | DRG 643 ==
LOC: ERS 08:48 → 2SW 11:56 → OBSVTOIN 11-28 12:30
PROVIDERS: ADMIT Internal Medicine; ATTEND Internal Medicine
DX: D35.2 Benign neoplasm of pituitary gland (principal); A41.9 Sepsis, unspecified organism; N39.0 Urinary tract infection, site not specified; R07.9 Chest pain, unspecified; Z20.822 Contact with and (suspected) exposure to COVID-19; I10 Essential (primary) hypertension; E78.5 Hyperlipidemia, unspecified; M10.9 Gout, unspecified; G40.909 Epilepsy, unspecified, not intractable, without status epilepticus; E11.40 Type 2 diabetes mellitus with diabetic neuropathy, unspecified; K21.9 Gastro-esophageal reflux disease without esophagitis; F31.9 Bipolar disorder, unspecified; K59.00 Constipation, unspecified; E78.00 Pure hypercholesterolemia, unspecified; Z86.73 Personal history of transient ischemic attack (TIA), and cerebral infarction without residual deficits; Z79.84 Long term (current) use of oral hypoglycemic drugs; Z79.82 Long term (current) use of aspirin; Z79.899 Other long term (current) drug therapy; Z82.49 Family history of ischemic heart disease and other diseases of the circulatory system
CPT/HCPCS: 36415; 36416; 70450; 70553; 71045; 71046; 71275; 78452; 80048; 80053; 80061; 81003; 81015; 83036; 83735; 83880; 84100; 84443; 84484; 85025; 85379; 85610; 85730; 86140; 87086; 93005; 93017; 94640; 94760; 96365; 96367; 96375; 96376; A9500; G0378; J0153; J0696; J0780; J1815; J2270; J2405; J3475; J3490; J7050; J7620; Q0162; U0003; U0005

== ENCOUNTER 2021-12-07 05:54 | Emergency (ER) | payer MEDICARE, MEDICAID ==
[2021-12-07] MEDS ORDERED: Ibuprofen 800 MG TAB ONE (07:04)
== END 2021-12-07 07:06 | disposition home or self-care (01) ==
LOC: ERS 05:54
DX: H61.22 Impacted cerumen, left ear (principal); E11.40 Type 2 diabetes mellitus with diabetic neuropathy, unspecified; I10 Essential (primary) hypertension; E78.00 Pure hypercholesterolemia, unspecified; K21.9 Gastro-esophageal reflux disease without esophagitis; Z86.73 Personal history of transient ischemic attack (TIA), and cerebral infarction without residual deficits
CPT/HCPCS: 99282

== ENCOUNTER 2021-12-15 04:05 | Emergency (ER) | payer MEDICARE, MEDICAID ==
[2021-12-15] MEDS ORDERED: Ketorolac Tromethamine 30 MG/ML VIAL ONE (04:32)
[2021-12-15] MEDS ORDERED: Metoclopramide HCl 10 MG/2 ML VIAL ONE (04:32)
== END 2021-12-15 05:30 | disposition home or self-care (01) ==
LOC: ERS 04:05
DX: R51.9 Headache, unspecified (principal); B37.2 Candidiasis of skin and nail; Z86.73 Personal history of transient ischemic attack (TIA), and cerebral infarction without residual deficits; M19.90 Unspecified osteoarthritis, unspecified site; I10 Essential (primary) hypertension; K21.9 Gastro-esophageal reflux disease without esophagitis; E11.40 Type 2 diabetes mellitus with diabetic neuropathy, unspecified; Z79.84 Long term (current) use of oral hypoglycemic drugs; Z79.82 Long term (current) use of aspirin; Z79.02 Long term (current) use of antithrombotics/antiplatelets; Z79.899 Other long term (current) drug therapy
CPT/HCPCS: 96365; 96375; J1885; J2765

== ENCOUNTER 2022-07-29 10:43 | Emergency (ER) | payer MEDICARE, MEDICAID ==
[2022-07-29] MEDS ORDERED: Gentamicin Ophth Soln 0.3% 5 ml Bottle ONE (12:13)
== END 2022-07-29 12:55 | disposition home or self-care (01) ==
LOC: ERS 10:43
DX: H10.9 Unspecified conjunctivitis (principal); R56.9 Unspecified convulsions; E11.40 Type 2 diabetes mellitus with diabetic neuropathy, unspecified; I10 Essential (primary) hypertension; K21.9 Gastro-esophageal reflux disease without esophagitis; Z79.82 Long term (current) use of aspirin; Z79.899 Other long term (current) drug therapy; Z79.84 Long term (current) use of oral hypoglycemic drugs
CPT/HCPCS: 99284

== ENCOUNTER 2022-10-13 16:29 | Emergency (ER) | payer MEDICARE, MEDICAID ==
[2022-10-13] MEDS ORDERED: Ketorolac Tromethamine 30 MG/ML VIAL ONE (17:53)
== END 2022-10-13 18:52 | disposition home or self-care (01) ==
LOC: ERS 16:29
DX: M25.512 Pain in left shoulder (principal); E11.9 Type 2 diabetes mellitus without complications; K21.9 Gastro-esophageal reflux disease without esophagitis; I10 Essential (primary) hypertension; Z79.82 Long term (current) use of aspirin; Z79.899 Other long term (current) drug therapy; Z79.84 Long term (current) use of oral hypoglycemic drugs
CPT/HCPCS: 96372; J1885

== ENCOUNTER 2022-10-18 21:50 | Emergency (ER) | payer MEDICARE, MEDICAID ==
[2022-10-18 23:01] LABS: #Basophils 0.1 thou/uL (0.0-0.2); #Eosinphils 0.1 thou/uL (0.0-0.7); #Lymphocytes 2.8 thou/uL (1.20-3.40); #Neutrophils 6.9 thou/uL (1.40-6.50); %Basophils 1.2 % (0.0-1.0); %Lymphocytes 25.6 % (21.0-51.0); %Monocytes 8.8 % (0.0-10.0); %Neutrophils 63.4 % (42.0-75.0); Hemoglobin 12.4 g/dL (12.0-16.0); Mean Corpuscular HGB CONC 33.9 g/dL (32.0-36.0); Mean Corpuscular Hemoglobin 28.4 pg (27.0-31.0); Mean Corpuscular Volume 83.8 fl (78.0-98.0); Mean Platelet Volume 8.9 fL (7.4-10.4); Platelet Count 319 10x3/uL (130-400); Red Blood Cell (RBC) Count 4.36 mill/uL (4.20-5.40); White Blood Cell (WBC) Count 10.9 10x3/uL (4.8-10.8)
[2022-10-18] MEDS ORDERED: levETIRAcetam 500 MG/5 ML VIAL ONE (23:05)
[2022-10-18 23:23] LABS: ALT (SGPT) 15 U/L (8-55); AST (SGOT) 13 U/L (5-34); Albumin 4.4 g/dL (3.4-4.8); Alkaline Phosphatase 102 U/L (40-110); Anion Gap 13 mmol/L (10-20); BUN (Urea Nitrogen) 15 mg/dL (9.8-20.1); Bilirubin, Total 0.2 mg/dL (0.2-1.2); Calc. Creatinine Clearance 0 mL/min (70-130); Calcium 10.3 mg/dL (7.8-10.44); Carbon Dioxide 26 mmol/L (23-31); Chloride 105 mmol/L (98-107); Estimated GFR 74; Globulin 3.3 g/dL (2.4-3.5); Glucose 99 mg/dL (80-115); Potassium 3.7 mmol/L (3.5-5.1); Protein, Total 7.7 g/dL (5.8-8.1); Sodium 140 mmol/L (136-145)
== END 2022-10-19 01:00 | disposition home or self-care (01) ==
LOC: ERS 21:50
DX: R56.9 Unspecified convulsions (principal); D72.829 Elevated white blood cell count, unspecified; Z79.899 Other long term (current) drug therapy; Z79.84 Long term (current) use of oral hypoglycemic drugs; Z79.82 Long term (current) use of aspirin
CPT/HCPCS: 70450; 80053; 84146; 85025; 96374; 99284; J1953

== ENCOUNTER 2023-03-12 16:39 | Observation (INO) | payer OTHER, MEDICAID ==
[~2023-03-12 16:39] MED LIST changes: -Iopamidol-370 76% 500 ML 1 ML ONE; +Iopamidol-370 76% 500 ML MDV (1 ML CHARGE) ONE
[2023-03-12 17:36] LABS: #Eosinphils 0.1 thou/uL (0.0-0.7); #Monocytes 1.1 thou/uL (0.11-0.59); #Neutrophils 5.5 thou/uL (1.40-6.50); %Basophils 0.4 % (0.0-1.0); %Eosinophils 0.7 % (0.0-10.0); %Lymphocytes 24.9 % (21.0-51.0); %Neutrophils 61.4 % (42.0-75.0); Hematocrit 36.2 % (36.0-47.0); Mean Corpuscular HGB CONC 33.1 g/dL (32.0-36.0); Mean Corpuscular Hemoglobin 26.7 pg (27.0-31.0); Mean Corpuscular Volume 80.4 fl (78.0-98.0); Mean Platelet Volume 11.3 fL (7.4-10.4); Platelet Count 354 10x3/uL (130-400); RBC Distribution Width 13.7 % (11.5-14.5)
[2023-03-12 18:00] LABS: ALT (SGPT) 10 U/L (8-55); AST (SGOT) 12 U/L (5-34); Albumin 4.2 g/dL (3.4-4.8); Alkaline Phosphatase 109 U/L (40-110); Anion Gap 15 mmol/L (10-20); BUN (Urea Nitrogen) 10 mg/dL (9.8-20.1); Bilirubin, Total 0.4 mg/dL (0.2-1.2); Calc. Creatinine Clearance 0 mL/min (70-130); Calcium 10.1 mg/dL (7.8-10.44); Carbon Dioxide 23 mmol/L (23-31); Chloride 101 mmol/L (98-107); Estimated GFR 88; Globulin 3.1 g/dL (2.4-3.5); Glucose 115 mg/dL (80-115); Potassium 3.1 mmol/L (3.5-5.1); Protein, Total 7.3 g/dL (5.8-8.1); Sodium 136 mmol/L (136-145)
[2023-03-12 18:03] LABS: Troponin I Less than 0.010 ng/mL (< 0.028)
[2023-03-12 18:49] LABS: Prothrombin Time 13.7 sec (12.0-14.7)
[2023-03-12 18:50] LABS: PTT 30.2 sec (22.9-36.1)
[2023-03-12] MEDS ORDERED: Labetalol HCl 100 MG/20 ML VIAL SLOW IVP PRN (19:05)
[2023-03-12 19:38] LABS: Hemoglobin A1c 6.7 % (4.0-6.0)
[2023-03-12] MEDS ORDERED: Insulin Regular 300 UNITS/3 ML VIAL SC PRN ×2 (20:23)
[2023-03-12] MEDS ORDERED: Dextrose 5% in Water 1,000 ML IV PRN (20:23)
[2023-03-12] MEDS ORDERED: Glucagon 1 MG/ML KIT IM PRN (20:23)
[2023-03-12] MEDS ORDERED: ALPRAZolam 0.25 MG TAB PO SCH (20:23)
[2023-03-12] MEDS ORDERED: Dextrose 50% Abboject 50 ML SYRINGE SLOW IVP PRN (20:23)
[2023-03-12] MEDS ORDERED: Clopidogrel Bisulfate 75 MG TAB PO SCH (20:45)
[2023-03-12] MEDS ORDERED: Aspirin 81 mg Enteric Coated Tablet PO SCH (20:45)
[2023-03-12] MEDS ORDERED: FLUoxetine HCl 20 MG CAP PO SCH (20:50)
[2023-03-12] MEDS ORDERED: Electrolyte Replacement Protocol 1 EACH FS PRN (20:54)
[2023-03-12] MEDS ORDERED: Potassium Chloride 20 MEQ TAB PO SCH (21:00)
[2023-03-12 21:05] LABS: Troponin I Less than 0.010 ng/mL (< 0.028)
[2023-03-12] MEDS: levETIRAcetam 500 MG TAB PO SCH (22:35)
[2023-03-12] MEDS: Atorvastatin Calcium 40 MG TAB PO SCH (22:37)
[2023-03-13] MEDS ORDERED: Acetaminophen 500 MG TAB PO SCH (00:30)
[2023-03-13 01:18] LABS: Hematocrit 36.5 % (36.0-47.0); Mean Corpuscular HGB CONC 32.9 g/dL (32.0-36.0); Mean Corpuscular Hemoglobin 26.6 pg (27.0-31.0); Mean Corpuscular Volume 80.9 fl (78.0-98.0); Mean Platelet Volume 10.9 fL (7.4-10.4); Platelet Count 331 10x3/uL (130-400); RBC Distribution Width 13.7 % (11.5-14.5); Red Blood Cell (RBC) Count 4.51 mill/uL (4.20-5.40); White Blood Cell (WBC) Count 11.2 10x3/uL (4.8-10.8)
[2023-03-13 01:27] LABS: Delete Auto Diff?? YES; Manual Diff?? YES
[2023-03-13 01:45] LABS: Troponin I 0.011 ng/mL (< 0.028)
[2023-03-13 01:47] LABS: Anisocytosis SLIGHT = 6-15 cells HPF (0-5); Burr Cells SLIGHT = 2-5 cells HPF (0-1); CellaVision Operator ID LAB.JMM; Lymphocytes 22 % (21-51); Macrocytosis SLIGHT = 6-15 cells HPF (0-5); Monocytes 5 % (0-10); Neutrophil 73 % (42-75); Platelet Adequacy Comment Platelets Normal; Total Cell Count 100
[2023-03-13 01:59] LABS: ALT (SGPT) 9 U/L (8-55); AST (SGOT) 10 U/L (5-34); Albumin 3.9 g/dL (3.4-4.8); Alkaline Phosphatase 103 U/L (40-110); Anion Gap 17 mmol/L (10-20); BUN (Urea Nitrogen) 10 mg/dL (9.8-20.1); Bilirubin, Total 0.4 mg/dL (0.2-1.2); Calc. Creatinine Clearance 0 mL/min (70-130); Calcium 9.8 mg/dL (7.8-10.44); Carbon Dioxide 22 mmol/L (23-31); Cardiac Risk 3.1 (Less than 4.5); Chloride 101 mmol/L (98-107); Cholesterol 103 mg/dl (< 200 Desired); Estimated GFR 77; Globulin 2.9 g/dL (2.4-3.5); Glucose 241 mg/dL (80-115); HDL Cholesterol 33 mg/dL (>60 Neg Risk); LDL Cholesterol, Calculated 50 mg/dL; Protein, Total 6.8 g/dL (5.8-8.1); Sodium 137 mmol/L (136-145); Triglycerides 101 mg/dL (Less than 150)
[2023-03-13 05:29] VITALS: BMI 29.9
[2023-03-13 05:42] LABS: Potassium 3.5 mmol/L (3.5-5.1)
[2023-03-13] MEDS: Acetaminophen 325 MG TAB PO PRN ×3 (07:03→21:57)
[2023-03-13] MEDS ORDERED: Potassium Chloride 20 MEQ TAB PO SCH (08:15)
[2023-03-13] MEDS ORDERED: Aspirin 81 mg Enteric Coated Tablet PO SCH ×2 (09:00)
[2023-03-13] MEDS: Aspirin 81 mg Enteric Coated Tablet PO SCH (09:44)
[2023-03-13] MEDS: FLUoxetine HCl 20 MG CAP PO SCH (09:44)
[2023-03-13] MEDS: levETIRAcetam 500 MG TAB PO SCH ×2 (09:44→21:58)
[2023-03-13] MEDS: Clopidogrel Bisulfate 75 MG TAB PO SCH (09:46)
[2023-03-13] MEDS: Loratadine 10 MG TAB PO SCH (09:46)
[2023-03-13] MEDS: Atorvastatin Calcium 40 MG TAB PO SCH (21:58)
[2023-03-14] MEDS ORDERED: Mag-Al 1200 mg/1200 mg/30 ML UDCUP PO SCH (04:30)
[2023-03-14] MEDS ORDERED: HYDROcodone/Acetaminophen 5/325 mg Tablet PO SCH (04:30)
[2023-03-14 05:52] LABS: Anion Gap 10 mmol/L (10-20); BUN (Urea Nitrogen) 13 mg/dL (9.8-20.1); Calc. Creatinine Clearance 101 mL/min (70-130); Calcium 9.7 mg/dL (7.8-10.44); Carbon Dioxide 25 mmol/L (23-31); Chloride 105 mmol/L (98-107); Estimated GFR 88; Glucose 142 mg/dL (80-115); Magnesium 1.8 mg/dL (1.6-2.6); Potassium 3.9 mmol/L (3.5-5.1); Sodium 136 mmol/L (136-145)
[2023-03-14] MEDS ORDERED: Magnesium 2 GM/50 ML(in water) 2 GM in Premix Bag 1 BAG IVPB SCH (08:00)
[2023-03-14] MEDS: Loratadine 10 MG TAB PO SCH (09:30)
[2023-03-14] MEDS: levETIRAcetam 500 MG TAB PO SCH ×2 (09:31→22:14)
[2023-03-14] MEDS: FLUoxetine HCl 20 MG CAP PO SCH (09:32)
[2023-03-14] MEDS: Aspirin 81 mg Enteric Coated Tablet PO SCH (09:32)
[2023-03-14] MEDS: Clopidogrel Bisulfate 75 MG TAB PO SCH (09:32)
[2023-03-14] MEDS: oxyCODONE/Acetaminophen 5 mg/325 mg Tablet PO PRN ×2 (18:08→22:21)
[2023-03-14] MEDS: Gabapentin 300 MG CAP PO SCH (22:13)
[2023-03-14] MEDS: Atorvastatin Calcium 40 MG TAB PO SCH (22:14)
[2023-03-15] MEDS ORDERED: Promethazine HCl 12.5 MG in Sodium Chloride 0.9% 50 ML IVPB PRN (02:54)
[2023-03-15] MEDS ORDERED: Famotidine/PF 20 mg/2ml Vial SLOW IVP SCH (03:15)
[2023-03-15] MEDS: oxyCODONE/Acetaminophen 5 mg/325 mg Tablet PO PRN ×4 (03:50→20:53)
[2023-03-15] MEDS: Loratadine 10 MG TAB PO SCH (09:07)
[2023-03-15] MEDS: Aspirin 81 mg Enteric Coated Tablet PO SCH (09:07)
[2023-03-15] MEDS: Gabapentin 300 MG CAP PO SCH ×2 (09:07→20:48)
[2023-03-15] MEDS: levETIRAcetam 500 MG TAB PO SCH ×2 (09:10→20:48)
[2023-03-15] MEDS: FLUoxetine HCl 20 MG CAP PO SCH (09:11)
[2023-03-15] MEDS: Clopidogrel Bisulfate 75 MG TAB PO SCH (09:11)
[2023-03-15] MEDS ORDERED: Polyethylene Glycol 3350 17 GM Packet PO PRN (13:06)
[2023-03-15] MEDS ORDERED: Senokot 8.6 MG TAB PO PRN (13:06)
[2023-03-15] MEDS: Atorvastatin Calcium 40 MG TAB PO SCH (20:47)
[2023-03-16] MEDS: oxyCODONE/Acetaminophen 5 mg/325 mg Tablet PO PRN ×3 (01:29→10:44)
[2023-03-16] MEDS: Acetaminophen 325 MG TAB PO PRN (03:12)
[2023-03-16] MEDS: Gabapentin 300 MG CAP PO SCH (10:44)
[2023-03-16] MEDS: levETIRAcetam 500 MG TAB PO SCH (10:45)
[2023-03-16] MEDS: Aspirin 81 mg Enteric Coated Tablet PO SCH (10:45)
[2023-03-16] MEDS: Clopidogrel Bisulfate 75 MG TAB PO SCH (10:45)
[2023-03-16] MEDS: FLUoxetine HCl 20 MG CAP PO SCH (10:46)
[2023-03-16] MEDS: Loratadine 10 MG TAB PO SCH (10:46)
[2023-03-16 16:32] VITALS: BP 105/65; TEMP 97.8
[2023-03-17] MEDS ORDERED: Gabapentin 300 MG CAP PO SCH (15:00)
== END 2023-03-16 18:25 | disposition home or self-care (01) ==
LOC: ERS 16:39 → 2SE 19:19
PROVIDERS: ADMIT Internal Medicine; ATTEND Internal Medicine
DX: R29.818 Other symptoms and signs involving the nervous system (principal); I08.1 Rheumatic disorders of both mitral and tricuspid valves; I10 Essential (primary) hypertension; E11.9 Type 2 diabetes mellitus without complications; G40.909 Epilepsy, unspecified, not intractable, without status epilepticus; F41.8 Other specified anxiety disorders; E78.5 Hyperlipidemia, unspecified; F39 Unspecified mood [affective] disorder; Z90.49 Acquired absence of other specified parts of digestive tract; Z90.710 Acquired absence of both cervix and uterus; Z79.84 Long term (current) use of oral hypoglycemic drugs; Z79.899 Other long term (current) drug therapy; Z79.82 Long term (current) use of aspirin; Z86.73 Personal history of transient ischemic attack (TIA), and cerebral infarction without residual deficits
CPT/HCPCS: 70450; 70496; 70498; 70551; 71045; 71275; 73030; 74174; 80048; 80053 ×2; 80061; 82962 ×5; 83036; 83735; 83880; 84132; 84484 ×3; 85025 ×2; 85610; 85730; 93005; 93306; 96372 ×3; 96374; 96375; 97110 ×2; 97116 ×3; 97535; 99285; G0378 ×6; 36415; 36416; J1650; J1815; J2550; J3475; Q9967; S0028

== ENCOUNTER 2023-09-12 14:02 | Outpatient (CLI) | payer MEDICAID, OTHER | END 2023-09-12 14:03 | disposition home or self-care (01) | LOC: BICMAMMO 14:02 | PROVIDERS: ATTEND Family Medicine | DX: Z12.31 Encounter for screening mammogram for malignant neoplasm of breast (principal); M85.89 Other specified disorders of bone density and structure, multiple sites; Z80.3 Family history of malignant neoplasm of breast | CPT/HCPCS: 77063; 77067; 77080 ==

== ENCOUNTER 2024-04-29 12:07 | Emergency (ER) | payer OTHER ==
[2024-04-29 12:37] LABS: Bacteria/HPF 3+ HPF (None Seen); Bilirubin Negative (Negative); Blood, Urine 3+ (Negative); CAUTI Indications for Culture Pelvic or flank pain; Clarity Extra Turbid (Clear); Glucose, Urine (Dipstick) Normal (Negative); Ketone, Urine Negative (Negative); Leukocyte 500 Leu/uL (Negative); Nitrite 1+ (Negative); Protein, Urine (Dipstick) 100 mg/dL (Neg-Trace); RBC/HPF 21-50 HPF (0-3); Specific Gravity, Urine 1.011 (1.002-1.036); Squamous Epithelial 0-3 HPF (0-3); WBC/HPF Greater than 50 HPF (0-3); pH, Urine 6.5 (5.0-9.0)
[2024-04-29] MEDS ORDERED: HYDROcodone/Acetaminophen 5/325 mg Tablet ONE (13:07)
[2024-04-29 14:22] LABS: Urine Culture Reflex Yes Yes
[2024-04-29] MEDS ORDERED: Sulfameth/Trimethoprim DS 800-160mg TAB ONE (14:36)
== END 2024-04-29 14:34 | disposition home or self-care (01) ==
LOC: ERS 12:07
DX: N39.0 Urinary tract infection, site not specified (principal); I10 Essential (primary) hypertension; E11.9 Type 2 diabetes mellitus without complications; Z79.84 Long term (current) use of oral hypoglycemic drugs; Z79.899 Other long term (current) drug therapy; Z79.82 Long term (current) use of aspirin; Z55.6 Problems related to health literacy
CPT/HCPCS: 81001; 87077; 87086; 87186; 99283

== ENCOUNTER 2024-05-24 08:11 | Emergency (ER) | payer OTHER ==
[2024-05-24] MEDS ORDERED: Proparacaine 0.5% Opth 15 ML BOT ONE (09:31)
[2024-05-24] MEDS ORDERED: Ketorolac Tromethamine 30 MG (1 mL) VIAL ONE (09:44)
[2024-05-24 10:14] LABS: #Basophils 0.06 10x3/uL (0.0-0.2); %Basophils 0.9 % (0.0-1.0); %Eosinophils 1.4 % (0.0-10.0); %Lymphocytes 31.3 % (21.0-51.0); %Monocytes 7.5 % (0.0-10.0); %Neutrophils 58.3 % (42.0-75.0); Hematocrit 35.8 % (36.0-47.0); Hemoglobin 11.6 g/dL (12.0-16.0); Mean Corpuscular HGB CONC 32.4 g/dL (32.0-36.0); Mean Corpuscular Hemoglobin 26.5 pg (27.0-31.0); Mean Corpuscular Volume 81.7 fL (78.0-98.0); Mean Platelet Volume 11.3 fL (7.4-10.4); Platelet Count 325 10x3/uL (130-400); RBC Distribution Width 14.5 % (11.5-14.5); Red Blood Cell (RBC) Count 4.38 mill/uL (4.20-5.40)
[2024-05-24 10:36] LABS: ALT (SGPT) 9 U/L (8-55); AST (SGOT) 11 U/L (5-34); Albumin 3.5 g/dL (3.4-4.8); Alkaline Phosphatase 89 U/L (40-110); Anion Gap 14 mmol/L (10-20); BUN (Urea Nitrogen) 10 mg/dL (9.8-20.1); Bilirubin, Total 0.2 mg/dL (0.2-1.2); Calc. Creatinine Clearance 0 mL/min (70-130); Calcium 9.3 mg/dL (7.8-10.44); Carbon Dioxide 24 mmol/L (23-31); Chloride 106 mmol/L (98-107); Estimated GFR 90; Globulin 3.3 g/dL (2.4-3.5); Glucose 149 mg/dL (80-115); Potassium 3.8 mmol/L (3.5-5.1); Protein, Total 6.8 g/dL (5.8-8.1); Sodium 140 mmol/L (136-145)
[2024-05-24] MEDS ORDERED: Fluorescein Opthalmic Strip ONE ×2 (10:56→10:57)
[2024-05-24] MEDS ORDERED: Aspirin Chewable 81 MG TAB ONE (11:03)
[2024-05-24] MEDS ORDERED: HYDROcodone/Acetaminophen 5/325 mg Tablet ONE (11:04)
== END 2024-05-24 11:50 | disposition home or self-care (01) ==
LOC: ERS 08:11
DX: H10.9 Unspecified conjunctivitis (principal); R51.9 Headache, unspecified; E11.9 Type 2 diabetes mellitus without complications; I10 Essential (primary) hypertension
CPT/HCPCS: 80053; 85025; 86141; 93005; J1885; 36415; 99284

== ENCOUNTER 2024-06-13 15:27 | Emergency (ER) | payer OTHER ==
[2024-06-13] MEDS ORDERED: Ketorolac Tromethamine 30 MG (1 mL) VIAL ONE (15:58)
[2024-06-13] MEDS ORDERED: Lidocaine 4% Patch ONE (15:58)
== END 2024-06-14 17:06 | disposition home or self-care (01) ==
LOC: ERS 15:27
DX: M25.511 Pain in right shoulder (principal); E11.9 Type 2 diabetes mellitus without complications; I10 Essential (primary) hypertension
CPT/HCPCS: 73030; 93971; J1885; 96372

== ENCOUNTER 2024-08-15 00:07 | Emergency (ER) | payer MEDICARE, OTHER ==
[2024-08-15] MEDS ORDERED: Ketorolac Tromethamine 30 MG (1 mL) VIAL ONE (02:22)
[2024-08-15 03:44] LABS: Hematocrit 36.3 % (36.0-47.0); Hemoglobin 12.1 g/dL (12.0-16.0); Mean Corpuscular HGB CONC 33.3 g/dL (32.0-36.0); Mean Corpuscular Hemoglobin 26.5 pg (27.0-31.0); Mean Corpuscular Volume 79.4 fL (78.0-98.0); Platelet Count 350 10x3/uL (130-400); RBC Distribution Width 13.9 % (11.5-14.5); Red Blood Cell (RBC) Count 4.57 mill/uL (4.20-5.40); White Blood Cell (WBC) Count 10.08 10x3/uL (4.8-10.8)
[2024-08-15 03:45] LABS: #Basophils 0.04 10x3/uL (0.0-0.2); #Eosinophils 0.08 10x3/uL (0.0-0.7); #Neutrophils 6.05 10x3/uL (1.40-6.50); %Basophils 0.4 % (0.0-1.0); %Eosinophils 0.8 % (0.0-10.0); %Lymphocytes 27.9 % (21.0-51.0); %Monocytes 9.9 % (0.0-10.0); Mean Platelet Volume 10.9 fL (7.4-10.4)
[2024-08-15 06:06] LABS: Albumin 4.1 g/dL (3.1-4.5); Alkaline Phosphatase 93 U/L (40-110); Anion Gap 15 mmol/L (10-20); Bilirubin, Total 0.3 mg/dL (0.3-1.2); Calc. Creatinine Clearance 0 mL/min (70-130); Calcium 9.7 mg/dL (7.8-10.44); Carbon Dioxide 23 mmol/L (23-31); Chloride 104 mmol/L (98-107); Estimated GFR 80; Globulin 3.7 g/dL (2.4-3.5); Glucose 139 mg/dL (80-115); Potassium 3.5 mmol/L (3.5-5.1); Protein, Total 7.8 g/dL (5.8-8.1); Sodium 138 mmol/L (136-145)
[2024-08-15 06:07] LABS: ALT (SGPT) 16 U/L (Less than 34); AST (SGOT) 26 U/L (11-34); BUN (Urea Nitrogen) 15 mg/dL (9.8-20.1)
== END 2024-08-15 04:07 | disposition home or self-care (01) ==
LOC: ERS 00:07
DX: M25.511 Pain in right shoulder (principal); E11.9 Type 2 diabetes mellitus without complications; E78.5 Hyperlipidemia, unspecified; I10 Essential (primary) hypertension
CPT/HCPCS: 73030; 80053; 80177; 85025; J1885; 36415; 96374

== ENCOUNTER 2025-04-17 16:51 | Emergency (ER) | payer MEDICARE, OTHER ==
[2025-04-17 17:10] LABS: #Basophils 0.06 10x3/uL (0.0-0.2); #Eosinophils 0.08 10x3/uL (0.0-0.7); #Monocytes 0.87 10x3/uL (0.11-0.59); #Neutrophils 4.97 10x3/uL (1.40-6.50); %Basophils 0.7 % (0.0-1.0); %Eosinophils 1.0 % (0.0-10.0); %Lymphocytes 26.7 % (21.0-51.0); %Monocytes 10.5 % (0.0-10.0); %Neutrophils 60.0 % (42.0-75.0); Hematocrit 35.3 % (36.0-47.0); Hemoglobin 11.5 g/dL (12.0-16.0); Mean Corpuscular Hemoglobin 26.1 pg (27.0-31.0); Mean Corpuscular Volume 80.0 fL (78.0-98.0); Platelet Count 337 10x3/uL (130-400); Red Blood Cell (RBC) Count 4.41 mill/uL (4.20-5.40); White Blood Cell (WBC) Count 8.28 10x3/uL (4.8-10.8)
[2025-04-17 17:34] LABS: ALT (SGPT) 11 U/L (Less than 34); AST (SGOT) 15 U/L (11-34); Albumin 3.6 g/dL (3.1-4.5); Alkaline Phosphatase 110 U/L (40-110); Anion Gap 12 mmol/L (10-20); BUN (Urea Nitrogen) 9 mg/dL (9.8-20.1); Bilirubin, Total 0.2 mg/dL (0.3-1.2); Calc. Creatinine Clearance 0 mL/min (70-130); Calcium 9.0 mg/dL (7.8-10.44); Carbon Dioxide 24 mmol/L (23-31); Chloride 105 mmol/L (98-107); Globulin 3.3 g/dL (2.4-3.5); Glucose 238 mg/dL (80-115); Potassium 3.5 mmol/L (3.5-5.1); Sodium 137 mmol/L (136-145)
[2025-04-17] MEDS ORDERED: Droperidol 5 MG/2 ML VIAL ONE (18:12)
== END 2025-04-17 20:31 | disposition home or self-care (01) ==
LOC: ERS 16:51
DX: G40.909 Epilepsy, unspecified, not intractable, without status epilepticus (principal); S09.90XA Unspecified injury of head, initial encounter; I25.10 Atherosclerotic heart disease of native coronary artery without angina pectoris; E11.9 Type 2 diabetes mellitus without complications; I10 Essential (primary) hypertension; W19.XXXA Unspecified fall, initial encounter
CPT/HCPCS: 70450; 72125; 80053; 85025; 93005; 96374; J1790

== ENCOUNTER 2025-07-11 08:27 | Emergency (ER) | payer OTHER ==
[2025-07-11] MEDS ORDERED: Proparacaine 0.5% Opth 15 ML BOT ONE (09:04)
[2025-07-11 09:17] LABS: #Basophils 0.05 10x3/uL (0.0-0.2); #Eosinophils 0.11 10x3/uL (0.0-0.7); #Monocytes 0.64 10x3/uL (0.11-0.59); #Neutrophils 4.26 10x3/uL (1.40-6.50); %Basophils 0.7 % (0.0-1.0); %Eosinophils 1.5 % (0.0-10.0); %Lymphocytes 28.0 % (21.0-51.0); %Monocytes 9.0 % (0.0-10.0); %Neutrophils 60.0 % (42.0-75.0); Hematocrit 36.7 % (36.0-47.0); Hemoglobin 12.0 g/dL (12.0-16.0); Mean Corpuscular Hemoglobin 25.6 pg (27.0-31.0); Mean Corpuscular Volume 78.3 fL (78.0-98.0); Platelet Count 349 10x3/uL (130-400); Red Blood Cell (RBC) Count 4.69 mill/uL (4.20-5.40); White Blood Cell (WBC) Count 7.11 10x3/uL (4.8-10.8)
[2025-07-11 09:42] LABS: ALT (SGPT) 11 U/L (Less than 34); AST (SGOT) 30 U/L (11-34); Albumin 3.6 g/dL (3.1-4.5); Alkaline Phosphatase 106 U/L (40-110); Anion Gap 14 mmol/L (10-20); BUN (Urea Nitrogen) 14 mg/dL (9.8-20.1); Bilirubin, Total 0.4 mg/dL (0.3-1.2); Calc. Creatinine Clearance 0 mL/min (70-130); Calcium 9.5 mg/dL (7.8-10.44); Carbon Dioxide 25 mmol/L (23-31); Chloride 108 mmol/L (98-107); Globulin 3.5 g/dL (2.4-3.5); Glucose 151 mg/dL (80-115); Potassium 3.8 mmol/L (3.5-5.1); Sodium 143 mmol/L (136-145)
[2025-07-11 10:01] LABS: T4 8.97 ug/dL (4.87-11.72); Thyroid Stimulating Hormone 1.1978 uIU/mL (0.35-4.94)
== END 2025-07-11 10:58 | disposition home or self-care (01) ==
LOC: ERS 08:27
DX: H10.9 Unspecified conjunctivitis (principal); R07.9 Chest pain, unspecified; E11.9 Type 2 diabetes mellitus without complications; I10 Essential (primary) hypertension; Z79.84 Long term (current) use of oral hypoglycemic drugs; Z79.899 Other long term (current) drug therapy; Z55.6 Problems related to health literacy
CPT/HCPCS: 71045; 80053; 84436; 84443; 84484; 85025; 93005